=== PATIENT | female | born 1945 | race Caucasian/White ===

== ENCOUNTER → 2018-04-20 08:03 | Outpatient (CLI) | payer MEDICARE, OTHER, SELFPAY ==
[2018-04-20 12:18] LABS: Absolute Lymphocyte Count 2.59 X10^3/ul (0.83-4.51); Absolute Neutrophil Count 3.7 X10^3/uL (2.0-7.7); Basophil# 0.04 X10^3/uL; Basophil% 0.6 % (0-1); Eosinophil# 0.09 X10^3/uL; Eosinophils% 1.2 % (0-5); Hematocrit 42.6 % (37-47); Hemoglobin 13.6 g/dl (12.0-15.0); Lymphocyte # 2.59 X10^3/ul (4.0); Lymphocyte % 35.9 % (19-41); Mean Corp Hgb Conc 31.9 g/gl (32-36); Mean Corpuscular Hgb 29.9 pg (27.0-32.0); Mean Corpuscular Volume 93.6 fL (81-99); Mean Platelet Vol. 10.7 fl (6.2-12.0); Monocyte# 0.79 X10^3/uL; Neutrophil % 51.3 % (47-70); Platelet Count 333 K/mm3 (150-450); RBC Distribution Width CV 14.3 % (11.6-14.6); RBC Distribution Width SD 48.6 fl (35.1-43.9); Red Blood Count 4.55 M/mm3 (4.2-5.4); White Blood Count 7.2 K/mm3 (4.4-11.0)
[2018-04-20 12:32] LABS: POSITIVE COUNT NO; POSITIVE DIFFERENTIAL NO; POSITIVE MORPHOLOGY NO
[2018-04-20 12:50] LABS: AST(SGOT) 49 U/L (15-37); Alanine Aminotransfer ALT/SGPT 50 U/L (13-56); Albumin, Serum 3.6 g/dL (3.2-5.0); Alkaline Phosphatase 58 U/L (45-117); Anion Gap 6 (5-15); BUN 7 mg/dL (7-18); BUN/Creat Ratio 11.3 RATIO (10-20); Calcium,Total 8.3 mg/dL (8.5-10.1); Chloride 98 mmol/L (98-107); Cholesterol 168 mg/dL (200); Creatinine, Serum 0.62 mg/dL (0.55-1.02); EST Glomerular Filtration Rate 100 mL/min (>60); Est Glom Filt Rate - Afr Amer 121 mL/min (>60); Globulin 3.7 g/dL (2.2-4.2); Glucose 72 mg/dL (74-106); High Density Lipoprotein 44 mg/dL; Iron 69 ug/dL (50-170); Potassium 3.7 mmol/L (3.5-5.1); Protein, Total 7.3 g/dL (6.4-8.2); Sodium Level 133 mmol/L (136-145); Thyroid Stim Hormone (TSH) 5.33 uIU/mL (0.358-3.74); Triglycerides 79 mg/dL; Very Low Density Lipoprotein 16 mg/dL (5-40)
[2018-04-20 14:52] LABS: Vitamin B12 1074 pg/mL (211-911)
== END ==
PROVIDERS: Family Provider Family Medicine; PCP Family Medicine; Visit Provider Family Medicine
DX: D51.9 Vitamin B12 deficiency anemia, unspecified (principal); E78.5 Hyperlipidemia, unspecified; E55.9 Vitamin D deficiency, unspecified; D50.9 Iron deficiency anemia, unspecified
CPT/HCPCS: 36415; 80053; 80061; 82306; 82607; 83540; 84443; 85025

== ENCOUNTER → 2018-04-28 11:02 | Outpatient (CLI) | payer MEDICARE, OTHER, SELFPAY ==
[2018-04-28 13:28] LABS: Free T3 2.7 pg/mL (2.18-3.98); T4 Free Direct 1.07 ng/dL (0.76-1.46); Thyroid Stim Hormone (TSH) 5.73 uIU/mL (0.358-3.74)
[2018-04-29 14:07] LABS: Thyroid Peroxidase AB 11 IU/mL (0-34)
[2018-04-29 19:43] LABS: Thyroglobulin Antibody 5.2 IU/mL (0.0-0.9)
== END ==
PROVIDERS: Family Provider Family Medicine; PCP Family Medicine; Visit Provider Family Medicine
DX: E03.9 Hypothyroidism, unspecified (principal)
CPT/HCPCS: 36415; 84439; 84443; 84481; 86376; 86800

== ENCOUNTER → 2018-06-22 07:49 | Outpatient (CLI) | payer MEDICARE, OTHER, SELFPAY ==
--- NOTE | 2018-06-22 07:54 | BI_ITS ---
MAMMOGRAPHY - BILATERAL SCREENING REASON FOR EXAM: Female, 73 years old. Routine annual screening examination. PERTINENT HISTORY: Non-contributory. TECHNIQUE: Digital bilateral breast tutu (3D mammographic acquisition) in the CC and MLO projections. 2-D mediolateral oblique (MLO) and craniocaudad (CC) views of both breasts were obtained. CAD: Full Field Digital Mammography with Computer Added Detection was performed. COMPARISON: Comparison is made with prior study dated May 07, 2017 and January 23, 2016. FINDINGS: Breast Composition: There are scattered areas of fibroglandular density. There are no dominant masses or suspicious calcifications. No other significant abnormalities are identified. There has been no significant change since the prior study. BI/SCREEN MAMM (CAD) W/TUTU BILAT IMPRESSION: Stable bilateral screening mammogram. Yearly follow-up mammogram recommended. (A) ASSESSMENT CATEGORY: BIRADS Category 2: Benign. A letter regarding these results will be sent to the patient by the facility within 30 days. Approximately 10% of breast cancers are not detected by mammography. A normal mammogram should not delay biopsy of a clinically suspicious abnormality. [id number] Electronically Signed: Candelario Tian MD at 9:14 EST Tel [phone], Service support ,
--- NOTE | 2018-06-22 07:54 | BI_ITS ---
MAMMOGRAPHY - BILATERAL SCREENING REASON FOR EXAM: Female, 73 years old. Routine annual screening examination. PERTINENT HISTORY: Non-contributory. TECHNIQUE: Digital bilateral breast anthony (3D mammographic acquisition) in the CC and MLO projections. 2-D mediolateral oblique (MLO) and craniocaudad (CC) views of both breasts were obtained. CAD: Full Field Digital Mammography with Computer Added Detection was performed. COMPARISON: Comparison is made with prior study dated May 07, 2017 and January 23, 2016. FINDINGS: Breast Composition: There are scattered areas of fibroglandular density. There are no dominant masses or suspicious calcifications. No other significant abnormalities are identified. There has been no significant change since the prior study. BI/Bilat Brst Screen Anthony Add-On IMPRESSION: Stable bilateral screening mammogram. Yearly follow-up mammogram recommended. (A) ASSESSMENT CATEGORY: BIRADS Category 2: Benign. A letter regarding these results will be sent to the patient by the facility within 30 days. Approximately 10% of breast cancers are not detected by mammography. A normal mammogram should not delay biopsy of a clinically suspicious abnormality. [id number] Electronically Signed: Candelario Tian MD at 9:14 EST Tel [phone], Service support ,
== END ==
PROVIDERS: Family Provider Family Medicine; PCP Family Medicine; Referring Provider Family Medicine; Visit Provider Family Medicine
DX: Z12.31 Encounter for screening mammogram for malignant neoplasm of breast (principal)
CPT/HCPCS: 77063; 77067

== ENCOUNTER → 2018-07-27 14:28 | Outpatient (CLI) | payer MEDICARE, OTHER, SELFPAY ==
[2018-07-27 18:11] LABS: Free T3 2.2 pg/mL (2.18-3.98); T4 Free Direct 1.13 ng/dL (0.76-1.46); Thyroid Stim Hormone (TSH) 2.41 uIU/mL (0.358-3.74)
== END ==
PROVIDERS: Family Provider Family Medicine; PCP Family Medicine; Visit Provider Family Medicine
DX: E03.9 Hypothyroidism, unspecified (principal)
CPT/HCPCS: 36415; 84439; 84443; 84481

== ENCOUNTER → 2019-01-19 10:21 | Outpatient (CLI) | payer MEDICARE, OTHER, SELFPAY ==
[2019-01-19 12:44] LABS: Free T3 2.5 pg/mL (2.18-3.98); T4 Free Direct 1.12 ng/dL (0.76-1.46); Thyroid Stim Hormone (TSH) 1.86 uIU/mL (0.358-3.74)
== END ==
PROVIDERS: Family Provider Family Medicine; PCP Family Medicine; Visit Provider Family Medicine
DX: E03.9 Hypothyroidism, unspecified (principal)
CPT/HCPCS: 36415; 84439; 84443; 84481

== ENCOUNTER → 2019-04-27 | Outpatient (CLI) | payer MEDICARE, OTHER, SELFPAY ==
[2019-04-27 12:34] LABS: Absolute Lymphocyte Count 2.37 X10^3/uL (0.83-4.51); Absolute Neutrophil Count 3.6 X10^3/uL (2.0-7.7); Basophil# 0.06 X10^3/uL; Basophil% 0.9 % (0-1); Eosinophil# 0.08 X10^3/uL; Eosinophils% 1.2 % (0-5); Hematocrit 43.1 % (37-47); Hemoglobin 13.6 g/dL (12.0-15.0); Lymphocyte # 2.37 X10^3/ul (4.0); Lymphocyte % 34.8 % (19-41); Mean Corp Hgb Conc 31.6 g/dL (32-36); Mean Corpuscular Hgb 29.8 pg (27.0-32.0); Mean Corpuscular Volume 94.5 fL (81-99); Mean Platelet Vol. 11.7 fl (6.2-12.0); Monocyte# 0.66 X10^3/uL; Monocyte% 9.7 % (0-10); NRBC Flagged by Analyzer 0 % (0-5); Neutrophil # 3.63 X10^3/uL (2.7-7.7); Neutrophil % 53.3 % (47-70); Platelet Count 257 K/mm3 (150-450); RBC Distribution Width CV 13.9 % (11.6-14.6); RBC Distribution Width SD 48.8 fl (35.1-43.9); Red Blood Count 4.56 M/mm3 (4.2-5.4); White Blood Count 6.8 K/mm3 (4.4-11.0)
[2019-04-27 12:48] LABS: ALB/GLOB Ratio 1.1 RATIO (0.9-2.4); AST(SGOT) 40 U/L (15-37); Alanine Aminotransfer ALT/SGPT 44 U/L (13-56); Albumin, Serum 4.1 g/dL (3.2-5.0); Alkaline Phosphatase 62 U/L (45-117); Anion Gap 10 (5-15); BUN 11 mg/dL (7-18); BUN/Creat Ratio 13.9 RATIO (10-20); Calcium,Total 8.8 mg/dL (8.5-10.1); Chloride 97 mmol/L (98-107); Cholesterol 158 mg/dL (200); Creatinine, Serum 0.79 mg/dL (0.55-1.02); EST Glomerular Filtration Rate 75 mL/min (>60); Est Glom Filt Rate - Afr Amer 91 mL/min (>60); Globulin 3.6 g/dL (2.2-4.2); Glucose 79 mg/dL (74-106); High Density Lipoprotein 56 mg/dL; Protein, Total 7.7 g/dL (6.4-8.2); Sodium Level 134 mmol/L (136-145); Thyroid Stim Hormone (TSH) 2.38 uIU/mL (0.358-3.74); Triglycerides 60 mg/dL; Very Low Density Lipoprotein 12 mg/dL (5-40)
== END | disposition home or self-care (01) ==
LOC: LAB.FUTURE 08:04
PROVIDERS: Family Provider Family Medicine; PCP Family Medicine; Visit Provider Family Medicine
DX: E78.5 Hyperlipidemia, unspecified (principal); D50.9 Iron deficiency anemia, unspecified; E03.9 Hypothyroidism, unspecified; Z51.81 Encounter for therapeutic drug level monitoring
CPT/HCPCS: 36415; 80053; 80061; 84443; 85025

== ENCOUNTER → 2019-06-23 11:52 | Outpatient (CLI) | payer MEDICARE, OTHER, SELFPAY ==
--- NOTE | 2019-06-23 11:56 | BI_ITS ---
MAMMOGRAPHY - BILATERAL SCREENING 3-D TOMOSYNTHESIS REASON FOR EXAM: Female, 74 years old. Routine screening mammogram. PERTINENT HISTORY: No significant family history. TECHNIQUE: 2-D mammograms and 3-D Tomosynthesis of the breast (s) were performed. CAD was performed. COMPARISON: June 22, 2018, May 07, 2017 FINDINGS: The breast composition is almost entirely fat. Scattered benign calcifications are seen. No dense spiculated masses or suspicious microcalcifications are identified. No architectural distortion is identified. There is no skin thickening or retraction. There has been no significant change since the prior study. BI/SCREEN MAMM (CAD) W/TUTU BILAT IMPRESSION: No mammographic signs of malignancy. Routine yearly mammograms recommended. ASSESSMENT CATEGORY: BIRADS Category 2: Benign. A letter regarding these results will be sent to the patient by the facility within 30 days. FOLLOW UP RECOMMENDATION: Yearly follow up mammogram recommended. (A) Approximately 10% of breast cancers are not detected by mammography. A normal mammogram should not delay biopsy of a clinically suspicious abnormality. Electronically Signed: Killian Isaacs MD at 15:23 EST , Service support ,
== END ==
PROVIDERS: Family Provider Family Medicine; PCP Family Medicine; Referring Provider Family Medicine; Visit Provider Family Medicine
DX: Z12.31 Encounter for screening mammogram for malignant neoplasm of breast (principal)
CPT/HCPCS: 77063; 77067

== ENCOUNTER → 2019-10-19 13:25 | Outpatient (CLI) | payer MEDICARE, OTHER, SELFPAY ==
--- NOTE | 2019-10-19 13:45 | MRI_ITS ---
STUDY: MRI CERVICAL SPINE WITHOUT CONTRAST REASON FOR EXAM: Female, 74 years old. Neck and LEFT shoulder/arm pain TECHNIQUE: Standardized fat and water weighted pulse sequences were obtained in the sagittal and axial planes. COMPARISON: None FINDINGS: Normal foramen magnum and brainstem-cervical cord junction. Normal craniovertebral junction. Normal anterior atlantoaxial articulation. Normal odontoid process. Normal cervical lordosis. Normal vertebral bodies and posterior osseous elements. C2-3: Normal disc. Left facet hypertrophy without compressive sequelae. C3-4: Disc osteophyte complex and left facet hypertrophy with mild left foraminal stenosis. C4-5: Disc osteophyte complex and bilateral facet hypertrophy with mild central canal and bilateral foraminal stenoses. C5-6: Disc osteophyte complex with moderate central canal and severe left and mild right foraminal stenoses. C6-7: Disc osteophyte complex with mild right foraminal stenosis. C7-T1: Disc osteophyte complex without compressive sequelae. Normal cervical cord. Normal visualized soft tissue structures. MRI/Spine Cervical (Routine) IMPRESSION: Multilevel degenerative disease as described. Severe left foraminal stenosis at the C5-6 level. Electronically Signed: Amilcar Burgos MD at 17:39 EDT Tel , Service support ,
--- NOTE | 2019-10-19 14:30 | MRI_ITS ---
STUDY: MRI LUMBAR SPINE WITHOUT CONTRAST REASON FOR EXAM: Female, 74 years old. radiculopathy- LEFT hip since June 2019 TECHNIQUE: Standardized fat and water weighted pulse sequences were obtained in the sagittal and axial planes. COMPARISON: None FINDINGS: T12-L1: Normal endplates. Normal disc height, hydration and morphology. Normal bilateral facet joints. Normal central canal and bilateral lateral recesses. Normal bilateral intervertebral neural foramina. Normal lumbar lordosis. There is no substantial scoliosis. Normal conus medullaris that terminates at the L2 level. L1-2: Normal endplates. Normal disc height, hydration and morphology. Normal bilateral facet joints. Normal central canal and bilateral lateral recesses. Normal bilateral intervertebral neural foramina. L2-3: Bulging annulus and bilateral facet hypertrophy without compressive sequelae. L3-4: Bulging annulus and bilateral facet and ligamentum flavum hypertrophy with mild bilateral foraminal stenoses. L4-5: Bulging annulus and bilateral facet and ligamentum flavum hypertrophy with facet joint effusions. 9 mm posterior left synovial cyst arising from the facet joint. Mild central canal stenosis and moderate right and mild left foraminal stenoses. L5-S1: Bulging annulus and bilateral facet hypertrophy and facet joint effusions with mild central canal stenosis and mild bilateral foraminal stenoses. Normal visualized sacral ala. Multiple small sacral Tarlov cysts. Normal visualized paraspinous soft tissue structures. MRI/Spine Lumbar (Routine) IMPRESSION: Multilevel degenerative disease as described. No evidence of nerve root impingement. Electronically Signed: Amilcar Burgos MD at 17:25 EDT Tel , Service support ,
== END ==
PROVIDERS: PCP Family Medicine; Referring Provider Nurse Practitioner Acute Care; Visit Provider Nurse Practitioner Acute Care
DX: M54.16 Radiculopathy, lumbar region (principal)
CPT/HCPCS: 72141; 72148

== ENCOUNTER 2019-10-26 15:00 | Outpatient (RCR) | payer MEDICARE, OTHER, SELFPAY ==
--- NOTE | 2019-10-04 14:19 | HP.PTEVAL ---
Patient's Visit Information RA LEOS is a 74 year old F referred to Physical Therapy by Truong Johnson MD with a diagnosis of LS radiculopathy. Date of Evaluation: 10/04/19 Physical Therapist: Mark Wick, DPT, OCS, CSCS - Visit Plan Frequency: 2x /Week Duration: 4-6 Weeks Plan: 2x/week for 4-6 weeks for. NS focus with LB and pelvic ROM ex. NS core strength progressing to HEP. HS stretching. E and MH if needed for pain. - Subjective Subjective: LBP L side and into buttock and left lateral hip and medial upper leg. Pulls in back of leg when bends over. Started in July and possibly due to unloading heavy garden bags but not sure that is what it was. Does have to lift invalid now and then out of chair. Pain get to 5-6/10 and is worse sitting at night. Walking is not a problem like sitting adn lifting are. Does have pain at night that cuases her to take alleve which helps her sleep. Does basic ADLs without a hitch just some pain. 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 Will have workup diagnostics on spine next week at [facility]. Phone visit with Dr. Brewster who prescribed prednison for 8 days which helped transiently. - Pain L LB Pain Intensity (Out of 10): 4 Pain Intensity Range: 0, 6 - Objective Walks normal and seps are normal with railing with some eccentric weakness descending. Balance is good. LB AROM et mod limtied and flexion mod limted without pain. SB min limited without pain increase. reflexes 2/3 in patella and achilles B. Sensation LE WNL to gross light touch. Strength LE knees and ankles 4/5 adn hip ext /abd 3+ and hip flexion 4-. +slump and SLR on L. Hard time with pelvic movement especially posterior tilt sitting. - Balance Scores Functional Gait Assessment Score: 28 % Disability: 6.6700 - Goals Goal 1:: Patient pain 0-2/10 at all times adn 75% improved Goal Time Frame: 4-6 Weeks Goal 2:: I approp HEP to limit future problems Goal Time Frame: 4-6 Weeks Goal 3:: Pt score <12 on oswestry Goal Time Frame: 4-6 Weeks - Rehabilitation Potential Physical Therapy Diagnosis: LB degeneration with radiculopathy Rehabilitation Potential: Good - Anticipated Interventions Patient/Client Instruction: Educate patient on: Condition, Plan of Care For the Purpose of:: To decrease pain, To increase ROM, To improve muscle performance and motor function, To increase tolerance to activity/condition/position Therapeutic Exercise to Include: Strength training, Postural training, Flexibilty training, Neuromotor development, Passive ROM, Active ROM, Dynamic Lumbar Stabilization For the Purpose of:: To decrease pain, To improve muscle performance and motor function, To increase tolerance to activity/condition/position, To improve ability of physical actions for home/community/work/leisure Manual Therapy Techniques to Include: Passive ROM For the Purpose of:: To decrease pain TENS: Yes Thermo therapy (hot pack): Yes For the Purpose of:: To decrease pain Thank you for the opportunity to evaluate your patient. For Medicare and Medicare HMO plans, please review the plan of care and approve it. It will need to be FAXED BACK to us at [phone] for Medicare purposes. For Medicare only, by signing this I certify the plan of care. Please let me know if there are questions or concerns regarding this plan of care. Physician Signature: Date:
--- NOTE | 2019-10-26 15:23 | HP.PTDCSUM ---
It has been my pleasure to treat RA LEOS referred by Dr. Truong Johnson MD, with the diagnosis of LS radiculopathy for a total of 6 visit(s). Discharge Date: 10/26/19 Please see the following information for a summary of their discharge status. Subjective: Got a call from [facility] and will have injection in hip. Has stenosis from MRI and needs injected. Pain persists in L LB and hip and into groin to 5/10 this week. Exercises help but not tremendously. Lies at night on right side and sleeps pretty good. Hard work taking care of at home. HEP streetching and strength on floor. Focus on NS spine is OK. L LB Pain Intensity (Out of 10): 5 % Improvement: 10 Objective/Function: L/S aROM WFL and no pain except end range flexion today. Walks normal without pain but gets it sitting with post pelvic tilt. Goal 1:: Patient pain 0-2/10 at all times adn 75% improved Goal Progress: Not Progressing Goal 2:: I approp HEP to limit future problems Goal Progress: Goal Met Goal 3:: Pt score <12 on oswestry Goal Progress: Not Progressing Plan: d/c, pt choice in favor of injection adn continuing HEP If there are questions or concerns regarding this patient's physical therapy, please feel free to call me at [phone]. Thank you for the referral of this patient. Sincerely, Mark Wick, DPT, OCS, CSCS
== END 2019-10-26 19:00 | disposition home or self-care (01) ==
LOC: PT 15:00
PROVIDERS: PCP Family Medicine; Referring Provider Orthopaedic Surgery; Visit Provider Orthopaedic Surgery
DX: M54.16 Radiculopathy, lumbar region (principal)
CPT/HCPCS: 97014; 97110; 97162; 97164; G0283

== ENCOUNTER → 2020-01-03 08:53 | Outpatient (CLI) | payer MEDICARE, OTHER, SELFPAY ==
[2020-01-03 13:22] LABS: Free T3 2.4 pg/mL (2.18-3.98); Thyroid Stim Hormone (TSH) 2.79 uIU/mL (0.358-3.74)
== END ==
PROVIDERS: PCP Family Medicine; Visit Provider Family Medicine
DX: E03.9 Hypothyroidism, unspecified (principal)
CPT/HCPCS: 36415; 84439; 84443; 84481

== ENCOUNTER → 2020-02-04 15:50 | Outpatient (CLI) | payer MEDICARE, OTHER, SELFPAY ==
[2020-02-04 13:22] VITALS: BMI 25.7
--- NOTE | 2020-02-04 13:30 | MASS_PTH ---
PATIENT: RA LEOS LOC: [facility] U#:[id number] AGE/SX: 80/F ROOM: RE02/04/[address]: Dr. Wilber Ballard MD : 1945 BED: DIS: SPEC #: [id number] RECD: 02/04/20 15:16 STATUS: AARON TALIA #: [id number] MIRELLA: 02/04/20 13:[address]: Wilber Ballard DEPT: SURGICAL PATHOLOGY RECD BY: Shaggy Bose ENTERED: 02/07/20 09:04 SP TYPE: Mass OTHR DR: Dr. Charisma Eaton DO Tissues: Buttock, NOS Procedures: Surgery Specimen Level IV HEADER OPERATION: Biopsy right buttock mass PRE-OP DIAGNOSIS: Right buttock mass TISSUE SUBMITTED: Right buttock tissue MICROSCOPIC DIAGNOSIS Right buttock mass, core biopsy: Fragments of fibroadipose tissue with focal dense fibrosis and dystrophic calcifications. Negative for malignancy. See comment. SJ:lupis 02/08/20 COMMENT Clinical correlation and appropriate follow up are necessary. MICROSCOPIC DESCRIPTION Slides are reviewed. GROSS DESCRIPTION Received in fixative is one container labeled with the patient's name and designated right buttock. The specimen consists of multiple elongated fragments of chacon soft tissue that in aggregate measure 1 x 0.3 x 0.1 cm. The specimen is totally submitted in one cassette. / CAROLE:lupis 02/07/20 TC:5 CPT: 02178
== END ==
PROVIDERS: PCP Family Medicine; Referring Provider Surgery; Visit Provider Surgery
DX: R22.9 Localized swelling, mass and lump, unspecified (principal)
CPT/HCPCS: 88305

== ENCOUNTER → 2020-08-08 08:18 | Outpatient (CLI) | payer MEDICARE, OTHER, SELFPAY ==
[2020-02-04 13:22] VITALS: BMI 25.7
[2020-08-08 12:13] LABS: Absolute Lymphocyte Count 2.84 X10^3/uL (0.83-4.51); Absolute Neutrophil Count 3.3 X10^3/uL (2.0-7.7); Basophil# 0.07 X10^3/uL; Eosinophil# 0.19 X10^3/uL; Eosinophils% 2.7 % (0-5); Hematocrit 41.3 % (37-47); Hemoglobin 13.4 g/dL (12.0-15.0); Lymphocyte # 2.84 X10^3/ul (4.0); Lymphocyte % 39.7 % (19-41); Mean Corp Hgb Conc 32.4 g/dL (32-36); Mean Corpuscular Hgb 31.2 pg (27.0-32.0); Mean Platelet Vol. 11.5 fl (6.2-12.0); Monocyte# 0.77 X10^3/uL; Monocyte% 10.8 % (0-10); NRBC Flagged by Analyzer 0 % (0-5); Neutrophil # 3.28 X10^3/uL (2.7-7.7); Neutrophil % 45.7 % (47-70); Platelet Count 269 K/mm3 (150-450); RBC Distribution Width CV 13.6 % (11.6-14.6); RBC Distribution Width SD 48.5 fl (35.1-43.9); White Blood Count 7.2 K/mm3 (4.4-11.0)
[2020-08-08 12:35] LABS: ALB/GLOB Ratio 1.1 RATIO (0.9-2.4); AST(SGOT) 47 U/L (15-37); Alanine Aminotransfer ALT/SGPT 50 U/L (13-56); Albumin, Serum 3.9 g/dL (3.2-5.0); Alkaline Phosphatase 68 U/L (45-117); Anion Gap 8 (5-15); BUN 13 mg/dL (7-18); BUN/Creat Ratio 17.9 RATIO (10-20); Calcium,Total 8.8 mg/dL (8.5-10.1); Chloride 99 mmol/L (98-107); Cholesterol 176 mg/dL (200); Creatinine, Serum 0.73 mg/dL (0.55-1.02); EST Glomerular Filtration Rate 82 mL/min (>60); Est Glom Filt Rate - Afr Amer 100 mL/min (>60); Free T3 2.7 pg/mL (2.18-3.98); Globulin 3.5 g/dL (2.2-4.2); Glucose 81 mg/dL (74-106); High Density Lipoprotein 47 mg/dL; Potassium 3.9 mmol/L (3.5-5.1); Protein, Total 7.4 g/dL (6.4-8.2); Sodium Level 135 mmol/L (136-145); T4 Free Direct 1.23 ng/dL (0.76-1.46); Triglycerides 61 mg/dL; Very Low Density Lipoprotein 12 mg/dL (5-40)
== END ==
PROVIDERS: PCP Family Medicine; Visit Provider Family Medicine
DX: Z00.00 Encounter for general adult medical examination without abnormal findings (principal); E03.9 Hypothyroidism, unspecified; E78.5 Hyperlipidemia, unspecified; Z51.81 Encounter for therapeutic drug level monitoring; Z13.1 Encounter for screening for diabetes mellitus
CPT/HCPCS: 36415; 80053; 80061; 84439; 84481; 85025

== ENCOUNTER → 2020-11-14 07:12 | Outpatient (CLI) | payer MEDICARE, OTHER, SELFPAY ==
[2020-02-04 13:22] VITALS: BMI 25.7
--- NOTE | 2020-11-14 07:14 | BI_ITS ---
MAMMOGRAPHY - BILATERAL SCREENING REASON FOR EXAM: Female, 75 years old. Routine annual screening examination. PERTINENT HISTORY: Non-contributory. TECHNIQUE: Digital bilateral breast tutu (3D mammographic acquisition) in the CC and MLO projections. 2-D mediolateral oblique (MLO) and craniocaudad (CC) views of both breasts were obtained. CAD: Full Field Digital Mammography with Computer Added Detection was performed. COMPARISON: Comparison is made with prior study dated 06/23/2019 and 06/22/2018. FINDINGS: Breast Composition: There are scattered areas of fibroglandular density. There are no dominant masses or suspicious calcifications. No other significant abnormalities are identified. There has been no significant change since the prior study. BI/SCRN MAMM (CAD)W/TUTU BILAT IMPRESSION: Stable bilateral screening mammogram. Yearly follow-up mammogram recommended. (A) ASSESSMENT CATEGORY: BIRADS Category 1: Negative. A letter regarding these results will be sent to the patient by the facility within 30 days. Approximately 10% of breast cancers are not detected by mammography. A normal mammogram should not delay biopsy of a clinically suspicious abnormality. [id number] Electronically Signed: Candelario Tian MD at 8:28 EDT , Service support ,
== END ==
PROVIDERS: PCP Family Medicine; Referring Provider Family Medicine; Visit Provider Family Medicine
DX: Z12.31 Encounter for screening mammogram for malignant neoplasm of breast (principal)
CPT/HCPCS: 77063; 77067

== ENCOUNTER 2021-08-24 07:39 | Inpatient (IN) | payer MEDICARE, OTHER, SELFPAY ==
[2021-08-24] VITALS (15 sets, daily range): BP systolic 101–162; BP diastolic 55–109; PULSE 80–93; RESP 14–18; TEMP 36.3–37.4; O2SAT 92–100; BMI 23.1; BMI 24.0
--- NOTE | 2021-08-24 | COL_PTH ---
PATIENT: RA LEOS LOC: [facility] U#:[id number] AGE/SX: 76/F ROOM: [facility] RE08/24/[address]: Dr. Isaiah Ruth MD : 1945 BED: 1 DIS: 08/28/2021 SPEC #: [id number] RECD: 08/24/21 13:29 STATUS: AARON MELGAR #: [id number] MIRELLA: 08/24/21 00:[address]: Isaiah Ruth DEPT: SURGICAL PATHOLOGY RECD BY: Rosamaria Hope ENTERED: 08/27/21 10:25 SP TYPE: COLON OTHR DR: Dr. Charisma Eaton DO Tissues: Colon, NOS Procedures: Surgery Specimen Level V HEADER OPERATION: Laparotomy ileocecectomy PRE-OP DIAGNOSIS: Cecal volvulus TISSUE SUBMITTED: Right colon MICROSCOPIC DIAGNOSIS Cecum and small bowel, segmental resection: Cecum consistent with volvulus. Small bowel with no pathologic change. Appendix with no evidence of inflammation. Three out of three lymph nodes with no pathologic change. See comment. AM:lupis 08/28/2021 COMMENT The findings are consistent with clinical impression of cecal volvulus. Clinical correlation is suggested. MICROSCOPIC DESCRIPTION Slides are reviewed. GROSS DESCRIPTION Received in fixative is one container labeled with the patient's name and designated cecum. The specimen consists of a dilated cecum measuring 9 x 7 x 5 cm. Attached to this is an unremarkable appendix measuring 8 cm in length and 0.7 cm in diameter. Also attached is a portion of terminal ileum measuring 8 cm in length. Sections of the appendix reveal an obliterated tip. The small bowel is grossly unremarkable. No mass lesions are identified. The ileocecal valve does not contain mass lesions. The segments of cecum show flattened mucosal fold; however, no mass lesions are identified. The fibrofatty tissue attached to the specimen contains several chacon nodules averaging 0.5 cm and grossly resembling lymph nodes. Classification Officer sections are submitted in seven cassettes as follows: 1 - appendix, 2??mucosal margins of excision, 3 - small bowel, 4 - ileocecal valve, 5 & 6 - cecum, 7 - presumed lymph nodes. / AM:lupis 08/27/2021 TC:5 CPT:
--- NOTE | 2021-08-24 08:13 | CT_ITS ---
STUDY: CT ABDOMEN AND PELVIS WITHOUT CONTRAST REASON FOR EXAM: Female, 76 years old. pain RADIATION DOSAGE (If Supplied By Facility): CTDIvol = ( 6.22 ) mGy, DLP = ( 282.88 ) mGycm TECHNIQUE: Transaxial images were obtained from the dome of the diaphragm to the symphysis pubis without oral contrast, and without intravenous contrast. Sagittal and coronal images were reconstructed. Individualized dose optimization techniques were used for this CT. COMPARISON: None. FINDINGS: The visualized lung bases are unremarkable. The visualized portions of the heart are within normal limits. Normal liver. There is non-visualization of the gallbladder, which may be secondary to either contraction or a prior cholecystectomy. Normal spleen. Normal pancreas. Normal bilateral adrenal glands. Nonobstructing 2 mm calculus of the right kidney. No hydronephrosis or ureteral calculi. Normal visualized stomach. No dilated loops of small bowel. Fecal residue throughout the colon but no colon wall thickening. Cecum is positioned in the midline and is moderately distended (9.1 cm) with fecal residue. Focal area of mesenteric crowding and swirling in the right lower abdomen on image 55 of series 601 with relative narrowing of the right colon (image 86 series 2) as it extends towards the hepatic flexure. There is non-visualization of the appendix. There is diffuse atherosclerotic calcification of the abdominal aorta, without a demonstrated aneurysm. Normal inferior vena cava. There is borderline retroperitoneal lymphadenopathy with enlarged nodes no greater than 10mm in the short axis diameter. Normal urinary bladder. There is a small umbilical hernia containing fat. Degenerative changes of the lumbar spine. CT/Abdomen/Pelvis without Cont IMPRESSION: 1. Midline position of the distended cecum with swirling of mesentery in the right lower quadrant and associated right colon narrowing suggesting cecal volvulus. No pneumoperitoneum or colon wall thickening. Electronically Signed: Mino Childers MD ([place]) at 8:50 EDT Reading Location ID and State: [place] , Service support ,
--- NOTE | 2021-08-24 08:14 | EX.ED.DYSGE1 ---
HPI History of Present Illness Chief Complaint: Abd Pain Narrative Narrative: Patient presents with abdominal pain that started about 6 hours ago, I woke her from sleep the pain is diffuse throughout the abdomen. She feels like she is bloated. There is no radiation to the back. There is nausea. No diarrhea. She has not passed gas. She does not have any flank pain. She has no urinary symptoms. There is no chest pain or shortness of breath. [facility] Medical History High cholesterol Hypothyroidism Mass Home Medications Ca carb-Ca gluc-Mg ox-Mg gluco 2,000 mg PO DAILY 04/25/14 [History Last Taken Unknown] aspirin 81 mg PO DAILY@0800 04/25/14 [History Last Taken Unknown] ferrous sulfate 65 mg PO DAILY 04/25/14 [History Last Taken Unknown] multivitamin with folic acid 1 tab PO DAILY 04/25/14 [History Last Taken Unknown] biotin 1 mg capsule 1 mg PO DAILY 01/11/20 [History Last Taken Unknown] vitamin B complex 1 tab PO DAILY 01/11/20 [History Last Taken Unknown] Allergy/AdvReac Type Severity Reaction Status Date / Time codeine Allergy Vomiting Verified 08/24/21 07:41 Surgical History H/O tubal ligation H/O: hysterectomy S/P tonsillectomy and adenoidectomy Status post laparoscopic cholecystectomy Social History Smoking Status: Never smoker ROS ROS ED ROS Narrative Past medical history: Reviewed, significant for hypothyroidism, hypercholesterolemia and prior gallbladder surgery Medications: Reviewed Social history: Noncontributory Review of systems: All systems negative except as indicated General: No fever Eyes: No visual changes ENT: No upper airway congestion, normal voice Neck: No neck pain Cardiovascular: No chest pain Respiratory: No shortness of breath or cough Gastrointestinal: As in HPI Genitourinary: No dysuria Musculoskeletal: Denies myalgias no difficulty with ambulation Skin: No rash Neurological: No memory loss, confusion or any focal weakness Psych: No recent behavioral changes Hematologic: No easy bleeding or easy bruising EXAM Physical Exam Narrative Exam Narrative: Physical exam General: Well nourished, Well developed, No Acute Distress Head: Normocephalic, Atraumatic Eyes: Conjunctiva not pale ENT: Moist mucous membranes Neck: Supple, Nontender, No lymphadenopathy Cardiovascular: Regular rate, Regular rhythm Respiratory: No distress, CTA bilaterally Abdomen: Somewhat distended. Diffuse tenderness throughout. I cannot appreciate bowel sounds. Some guarding no rebound Back: Nontender, Normal Inspection. Negative for: CVA tenderness Extremities: Nontender, No edema Skin: Normal color, No rash Neurological: Alert, Normal Strength, Normal Sensation Psychological: Normal affect Const Vital Signs: 08/24/21 07:40 Temperature 97.6 F L Temperature Source Temporal Pulse Rate 80 Respiratory Rate 16 Blood Pressure 162/109 H Blood Pressure Mean 126 Pulse Ox 98 Oxygen Delivery Method Room Air MDM MDM MDM Narrative Medical decision making narrative: Patient is given analgesia and antiemetics, blood work is unremarkable but the CT is suggestive of volvulus pattern. I discussed with surgery, patient is n.p.o. and will be seen by surgery. Lab Data Labs: Laboratory Results - last 24 hr 08/24/21 08/24/21 08:15 08:15 WBC 9.3 RBC 4.37 Hgb 13.7 Hct 41.0 MCV 93.8 MCH 31.4 MCHC 33.4 RDW Std Deviation 45.1 H RDW Coeff of [place] 13.1 Plt Count 324 MPV 9.8 Immature Gran % (Auto) 0.300 Neut % (Auto) 62.7 Lymph % (Auto) 25.5 [place] % (Auto) 9.2 Eos % (Auto) 1.5 Baso % (Auto) 0.8 Absolute Neuts (auto) 5.8 Absolute Lymphs (auto) 2.36 Nucleated RBC % 0 Sodium 132 L Potassium 3.7 Chloride 99 Carbon Dioxide 31.0 Anion Gap 2 L BUN 12 Creatinine 0.67 Estim Creat Clear Calc 40.04 Est GFR (MDRD) Af Amer 109 Est GFR (MDRD) Non-Af 90 BUN/Creatinine Ratio 17.8 Glucose 104 Calcium 8.3 L Total Bilirubin 0.70 AST 48 H ALT 52 Alkaline Phosphatase 66 Total Protein 7.1 Albumin 3.8 Globulin 3.3 Albumin/Globulin Ratio 1.2 Lipase 108 Radiography Diagnostic Testing: Clinical Impression(s) from Imaging Studies Abdomen/Pelvis CT 08/24/21 08:13 IMPRESSION: 1. Midline position of the distended cecum with swirling of mesentery in the right lower quadrant and associated right colon narrowing suggesting cecal volvulus. No pneumoperitoneum or colon wall thickening. Electronically Signed: Mino Childers MD ([place]) at 8:50 EDT Reading Location ID and State: [address] [place] [address] , Service support , Discharge Plan Triage Chief Complaint: Abd Pain ED Provider: Chivo Riley Dx/Rx/DC Orders Clinical Impression: Cecal volvulus Prescriptions: No Action vitamin B complex [B Complex-Vitamin B12] Tablet 1 tab PO DAILY RF: 0 biotin 1 mg capsule 1 mg PO DAILY RF: 0 aspirin 81 MG tablet 81 mg PO DAILY@0800 RF: 0 ferrous sulfate 325 MG tablet 65 mg PO DAILY RF: 0 multivitamin with folic acid 1 TABLET tablet 1 tab PO DAILY RF: 0 Ca carb-Ca gluc-Mg ox-Mg gluco 1 EACH tablet 2,000 mg PO DAILY RF: 0 Primary Care Provider: Charisma Eaton Referrals: Charisma Eaton DO [Primary Care Provider] - Disposition Disposition: Acute Care Hospital [facility]
[2021-08-24] MEDS: Ondansetron 4 MG/2 ML Vial IV (08:19)
[2021-08-24] MEDS: Morphine 2 MG/ML Syringe IV (08:19)
[2021-08-24 08:28] LABS: Absolute Lymphocyte Count 2.36 X10^3/uL (0.83-4.51); Absolute Neutrophil Count 5.8 X10^3/uL (2.0-7.7); Basophil# 0.07 X10^3/uL; Basophil% 0.8 % (0-1); Eosinophil# 0.14 X10^3/uL; Eosinophils% 1.5 % (0-5); Hemoglobin 13.7 g/dL (12.0-15.0); Lymphocyte # 2.36 X10^3/ul (0.83-4.51); Lymphocyte % 25.5 % (19-41); Mean Corp Hgb Conc 33.4 g/dL (32-36); Mean Corpuscular Hgb 31.4 pg (27.0-32.0); Mean Corpuscular Volume 93.8 fL (81-99); Mean Platelet Vol. 9.8 fl (6.2-12.0); Monocyte# 0.85 X10^3/uL; Monocyte% 9.2 % (0-10); NRBC Flagged by Analyzer 0 % (0-5); Neutrophil # 5.81 X10^3/uL (2.7-7.7); Neutrophil % 62.7 % (47-70); Platelet Count 324 K/mm3 (150-450); RBC Distribution Width CV 13.1 % (11.6-14.6); RBC Distribution Width SD 45.1 fl (35.1-43.9); Red Blood Count 4.37 M/mm3 (4.2-5.4); White Blood Count 9.3 K/mm3 (4.4-11.0)
[2021-08-24 08:45] LABS: ALB/GLOB Ratio 1.2 RATIO (0.9-2.4); AST(SGOT) 48 U/L (15-37); Alanine Aminotransfer ALT/SGPT 52 U/L (13-56); Albumin, Serum 3.8 g/dL (3.2-5.0); Alkaline Phosphatase 66 U/L (45-117); Anion Gap 2 (5-15); BUN 12 mg/dL (7-18); BUN/Creat Ratio 17.8 RATIO (10-20); Calcium,Total 8.3 mg/dL (8.5-10.1); Chloride 99 mmol/L (98-107); Creatinine, Serum 0.67 mg/dL (0.55-1.02); EST Glomerular Filtration Rate 90 mL/min (>60); Est Glom Filt Rate - Afr Amer 109 mL/min (>60); Estimated Creatinine Clearance 40.04 ml/min; Globulin 3.3 g/dL (2.2-4.2); Glucose 104 mg/dL (74-106); Lipase 108 U/L (73-393); Potassium 3.7 mmol/L (3.5-5.1); Protein, Total 7.1 g/dL (6.4-8.2); Sodium Level 132 mmol/L (136-145)
[2021-08-24 09:05] LABS: Bacteria 0 SEEN /hpf (None Seen); Mucous, Urine 0 SEEN /hpf (<or=2+); Red Blood Cells-Urine 0 SEEN /hpf (0-5); Squamous Epithelial Cells - UA 0 SEEN /hpf (5-10); White Blood Cells 0 SEEN /hpf (0-5)
[2021-08-24 09:09] LABS: Color, Urine Yellow (Yellow); Glucose, Dipstick Normal (Normal); Ketone-Dipstick Negative (Negative); Leukocyte Esterase-Dipstick Negative /ul (Negative); Nitrite-Dipstick Negative (Negative); Occult Blood-Urine Negative /ul (Negative); Protein-Dipstick Negative (Negative); Urine Bilirubin Dipstick Negative (Negative); Urine Clarity Clear (Clear); Urine Urobilinogen Normal (Normal)
--- NOTE | 2021-08-24 09:26 | EKG12_ITS ---
Test Reason : PRE-OP Blood Pressure : / mmHG Vent. Rate : 074 BPM Atrial Rate : 074 BPM P-R Int : 150 ms QRS Dur : 078 ms QT Int : 448 ms P-R-T Axes : 068 -15 036 degrees QTc Int : 497 ms Normal sinus rhythm Prolonged QT Abnormal ECG Confirmed by DILLON RODARTE, KAMERON ([id number]), graphics editor NINO RICHARD ([id number]) on 08/28/2021 10:45:25 AM Referred By: Isaiah Ruth Confirmed By:KAMERON CARRANZA MD
[2021-08-24] MEDS: Lactated Ringers 1,000 ML 100 ML IV (09:30)
--- NOTE | 2021-08-24 09:39 | HP.PCM.SX_ITS ---
HPI - General HPI Narrative RA LEOS is a 76 F who presents with sudden onset of abdominal pain. She says the pain is on the right side and started 2 AM. She said it is very severe. No nausea or vomiting. No fevers or chills. This is never happened in the past. [facility] Medical History High cholesterol Hypothyroidism [place] Home Medications Ca carb-Ca gluc-Mg ox-Mg gluco 2,000 mg PO DAILY 04/25/14 [History Last Taken Unknown] aspirin 81 mg PO DAILY@0800 04/25/14 [History Last Taken Unknown] ferrous sulfate 65 mg PO DAILY 04/25/14 [History Last Taken Unknown] multivitamin with folic acid 1 tab PO DAILY 04/25/14 [History Last Taken Unknown] biotin 1 mg capsule 1 mg PO DAILY 01/11/20 [History Last Taken Unknown] vitamin B complex 1 tab PO DAILY 01/11/20 [History Last Taken Unknown] Allergy/AdvReac Type Severity Reaction Status Date / Time codeine Allergy Vomiting Verified 08/24/21 07:41 Surgical History H/O tubal ligation H/O: hysterectomy S/P tonsillectomy and adenoidectomy Status post laparoscopic cholecystectomy Social History Smoking Status: Never smoker ROS Constitutional Constitutional: Denies anorexia or fatigue Eyes Eyes: Denies blurry vision ENT HEENT: Denies abnormal hearing Cardiovascular Cardiovascular: Denies chest pain Respiratory/Chest Respiratory/Chest: Denies cough or dyspnea Gastrointestinal Gastrointestinal: Reports abdominal pain; Denies nausea or vomiting Genitourinary Genitourinary: Denies change in urinary stream Musculoskeletal Musculoskeletal: Denies abnormal gait Integumentary Integumentary: Denies new lesions Neurologic Neurologic: Denies abnormal gait or dizziness Psychiatric Psychiatric: Denies anxiety Endocrine Endocrinology: Denies flushing Hematologic/Lymphatic Hematologic/Lymphatic: Denies easy bruising Vital Signs Vital Signs Vital Signs: 08/24/21 07:40 Temperature 97.6 F L Temperature Source Temporal Pulse Rate 80 Respiratory Rate 16 Blood Pressure 162/109 H Blood Pressure Mean 126 Pulse Ox 98 Oxygen Delivery Method Room Air Weight Weight: 135 lb Body Mass Index (BMI) 23.1 Physical Exam Const alert and oriented x3 Resp normal respiratory effort and normal air movement Cardio regular rate and regular rhythm GI soft to palpation and non-distended Palpation: tender RLQ Extremity normal to inspection Results Lab / Micro Data Result Diagrams: 08/24/21 08:15 08/24/21 08:15 Labs: Laboratory Results - last 24 hr 08/24/21 08:15: WBC 9.3, RBC 4.37, Hgb 13.7, Hct 41.0, MCV 93.8, MCH 31.4, MCHC 33.4, RDW Std Deviation 45.1 H, RDW Coeff of [place] 13.1, Plt Count 324, MPV 9.8, Immature Gran % (Auto) 0.300, Neut % (Auto) 62.7, Lymph % (Auto) 25.5, [place] % (Auto) 9.2, Eos % (Auto) 1.5, Baso % (Auto) 0.8, Absolute Neuts (auto) 5.8, Absolute Lymphs (auto) 2.36, Nucleated RBC % 0 08/24/21 08:15: Sodium 132 L, Potassium 3.7, Chloride 99, Carbon Dioxide 31.0, Anion Gap 2 L, BUN 12, Creatinine 0.67, Estim Creat Clear Calc 40.04, Est GFR (MDRD) Af Amer 109, Est GFR (MDRD) Non-Af 90, BUN/Creatinine Ratio 17.8, Glucose 104, Calcium 8.3 L, Total Bilirubin 0.70, AST 48 H, ALT 52, Alkaline Phosphatase 66, Total Protein 7.1, Albumin 3.8, Globulin 3.3, Albumin/Globulin Ratio 1.2, Lipase 108 08/24/21 08:55: Urine Color Yellow, Urine Clarity Clear, Urine pH 8.0, Ur Specific [place] 1.010, Urine Protein Negative, Urine Glucose (UA) Normal, Urine Ketones Negative, Urine Occult Blood Negative, Urine Nitrite Negative, Urine Bilirubin Negative, Urine Urobilinogen Normal, Ur Leukocyte Esterase Negative, Urine RBC 0 SEEN, Urine WBC 0 SEEN, Ur Squamous Epith Cells 0 SEEN, Urine Bacteria 0 SEEN, Urine Mucus 0 SEEN Radiology Impression Abdomen/Pelvis CT 08/24/21 08:13 IMPRESSION: 1. Midline position of the distended cecum with swirling of mesentery in the right lower quadrant and associated right colon narrowing suggesting cecal volvulus. No pneumoperitoneum or colon wall thickening. Electronically Signed: Mino Childers MD (Brooks) at 8:50 EDT Reading Location ID and State: [address] [place] [address] , Service support , Assessment & Plan Assessment/Plan (1) Cecal volvulus: PLAN: I saw the patient in the emergency room and she was writhing in pain especially on her right side. She was especially tender. I reviewed the CT scan which does show swirling of the mesentery and likely cecal volvulus. I discussed laparotomy and right hemicolectomy with her for cecal volvulus. I discussed the risks including modality to bleeding, infection, injury to surrounding organs. Patient understands risks and is when to proceed. I will emergently take her to the operating room for laparotomy and right hemicolectomy. She will be admitted postoperatively to the floor. Isaiah Ruth MD Pager: [facility] [address] [place] [address], [address] [place] [address] Office:
[2021-08-24] MEDS: Bupivacaine Mpf 0.5% 30 ML VIAL (10:30)
--- NOTE | 2021-08-24 11:02 | OP.PCM_ITS ---
Problems Associated Problem List Diagnoses (1) Cecal volvulus: Report of Operation Date of Procedure: 08/24/21 Pre-Operative Diagnosis: Cecal volvulus Post-Operative Diagnosis: Cecal volvulus Surgery/Procedure Performed:: Laparotomy with ileocecectomy and anastomosis Specimen's removed: Cecum Description of Procedure: Patient was brought back to the operating room and general anesthesia was induced. A Travis catheter was placed. The abdomen was prepped and draped in usual sterile fashion. A midline incision was made inferior to the umbilicus down to the pubic bone and the fascia was grasped and elevated and incised. A finger sweep was performed and then using electrocautery the incision was lengthened. The wound protector was then placed. The colon was identified and the cecum appeared to be volvulized. There was good ligament of Toldt in the distal ascending colon without much laxity in the ascending colon. The decision was made to perform an ileocecectomy. The distal ileum was identified and divided using a KRISTEN stapler. Next the vessels of the right colon were inspected and just proximal to one of the vessels to the ascending colon a window was made the mesentery and a KRISTEN stapler was used to divide the cecum from the distal ascending colon. LigaSure impact was used to take down the mesentery and there was good hemostasis. There did not appear to be any necrosis or signs of ischemia. Next using KRISTEN stapler the distal ileum was anastomosed to the ascending colon at the tenia. The staple line was inspected and appeared to have good hemostasis. A TX 60 stapler was used to close the enterotomy. A 3-0 silk suture was placed at the crotch of the staple line. The colon was reduced back into the abdomen and the abdomen w as copiously irrigated and suctioned dry. The wound protector was then removed and staff changed gown and gloves. Next the fascia was closed in a running fashion using 0 PDS suture from the top and bottom meeting in the middle. The subcutaneous tissue was irrigated and suctioned dry and the incision was closed with interrupted 4-0 Monocryl sutures. Steri-Strips and bandages were then applied. Travis was removed at the end of the case. Patient was taken to PACU in stable condition. Admit VTE Documentation VTE Mechan Device Prophylaxis: SCD's
[2021-08-24] MEDS: 0.9% Normal Saline 1,000 ML 60 ML IV (12:19)
[2021-08-24] MEDS: Acetaminophen 325 MG Tablet 650 MG PO (20:56)
[2021-08-24] MEDS: Docusate Sodium 100 MG Capsule PO (20:56)
[2021-08-25] VITALS (7 sets, daily range): BP systolic 133–169; BP diastolic 60–80; PULSE 51–104; RESP 12–20; TEMP 36.7–37.6; O2SAT 88–100
[2021-08-25] MEDS: Acetaminophen 325 MG Tablet 650 MG PO ×3 (04:58→23:18)
[2021-08-25] MEDS: 0.9% Normal Saline 1,000 ML 60 ML IV (05:00)
[2021-08-25 06:36] LABS: Absolute Lymphocyte Count 2.24 X10^3/uL (0.83-4.51); Absolute Neutrophil Count 13.9 X10^3/uL (2.0-7.7); Basophil# 0.04 X10^3/uL; Basophil% 0.2 % (0-1); Eosinophil# 0.07 X10^3/uL; Eosinophils% 0.4 % (0-5); Hematocrit 38.1 % (37-47); Lymphocyte # 2.24 X10^3/ul (0.83-4.51); Lymphocyte % 12.7 % (19-41); Mean Corp Hgb Conc 34.1 g/dL (32-36); Mean Corpuscular Hgb 30.9 pg (27.0-32.0); Mean Corpuscular Volume 90.5 fL (81-99); Mean Platelet Vol. 10.6 fl (6.2-12.0); Monocyte# 1.27 X10^3/uL; Monocyte% 7.2 % (0-10); NRBC Flagged by Analyzer 0 % (0-5); Neutrophil # 13.86 X10^3/uL (2.7-7.7); Neutrophil % 78.9 % (47-70); Platelet Count 299 K/mm3 (150-450); RBC Distribution Width CV 13.2 % (11.6-14.6); RBC Distribution Width SD 43.7 fl (35.1-43.9); Red Blood Count 4.21 M/mm3 (4.2-5.4); White Blood Count 17.6 K/mm3 (4.4-11.0)
--- NOTE | 2021-08-25 06:52 | PN.SURG_ITS ---
Subjective Subjective Patient does not note any flatus yet. She is in a lot less pain than before surgery. No nausea vomiting overnight. Objective Data Objective Data Vital Signs: Vital Signs Temp Pulse Resp BP Pulse Ox 98.0 F 86 20 H 158/73 H 92 08/25/21 05:01 08/25/21 05:01 08/25/21 05:01 08/25/21 05:01 08/25/21 05:01 Oxygen Flow Rate (L/min) 2 Oxygen Delivery Method Room Air Weight: 140 lb 0.002 oz Body Mass Index (BMI) 24.0 Intake & Output: Intake and Output for Last 24 Hours 08/23/21 08/24/21 08/25/21 23:59 23:59 23:59 Intake Total 1600 / 1600 1000 / 1000 Output Total 250 / 275 Balance 1350 / 1325 975 / 975 Lab / Micro Data Result Diagrams: 08/25/21 05:10 08/24/21 08:15 Labs: Laboratory Results - last 24 hr 08/24/21 08:15: WBC 9.3, RBC 4.37, Hgb 13.7, Hct 41.0, MCV 93.8, MCH 31.4, MCHC 33.4, RDW Std Deviation 45.1 H, RDW Coeff of [place] 13.1, Plt Count 324, MPV 9.8, Immature Gran % (Auto) 0.300, Neut % (Auto) 62.7, Lymph % (Auto) 25.5, [place] % (Auto) 9.2, Eos % (Auto) 1.5, Baso % (Auto) 0.8, Absolute Neuts (auto) 5.8, Absolute Lymphs (auto) 2.36, Nucleated RBC % 0 08/24/21 08:15: Sodium 132 L, Potassium 3.7, Chloride 99, Carbon Dioxide 31.0, Anion Gap 2 L, BUN 12, Creatinine 0.67, Estim Creat Clear Calc 40.04, Est GFR (MDRD) Af Amer 109, Est GFR (MDRD) Non-Af 90, BUN/Creatinine Ratio 17.8, Glucose 104, Calcium 8.3 L, Total Bilirubin 0.70, AST 48 H, ALT 52, Alkaline Phosphatase 66, Total Protein 7.1, Albumin 3.8, Globulin 3.3, Albumin/Globulin Ratio 1.2, Lipase 108 08/24/21 08:55: Urine Color Yellow, Urine Clarity Clear, Urine pH 8.0, Ur Specific [place] 1.010, Urine Protein Negative, Urine Glucose (UA) Normal, Urine Ketones Negative, Urine Occult Blood Negative, Urine Nitrite Negative, Urine Bilirubin Negative, Urine Urobilinogen Normal, Ur Leukocyte Esterase Negative, Urine RBC 0 SEEN, Urine WBC 0 SEEN, Ur Squamous Epith Cells 0 SEEN, Urine Bacteria 0 SEEN, Urine Mucus 0 SEEN 08/25/21 05:10: WBC 17.6 H, RBC 4.21, Hgb 13.0, Hct 38.1, MCV 90.5, MCH 30.9, MCHC 34.1, RDW Std Deviation 43.7, RDW Coeff of [place] 13.2, Plt Count 299, MPV 10.6, Immature Gran % (Auto) 0.600, Neut % (Auto) 78.9 H, Lymph % (Auto) 12.7 L, [place] % (Auto) 7.2, Eos % (Auto) 0.4, Baso % (Auto) 0.2, Absolute Neuts (auto) 13.9 H, Absolute Lymphs (auto) 2.24, Nucleated RBC % 0 Radiography Diagnostic Testing: Radiology Impression Abdomen/Pelvis CT 08/24/21 08:13 IMPRESSION: 1. Midline position of the distended cecum with swirling of mesentery in the right lower quadrant and associated right colon narrowing suggesting cecal volvulus. No pneumoperitoneum or colon wall thickening. Electronically Signed: Mino Childers MD (Brooks) at 8:50 EDT Reading Location ID and State: [address] [place] [address] , Service support , Physical Exam Const oriented x3 and no apparent distress Resp normal respiratory effort Cardio regular rate and regular rhythm GI soft to palpation Palpation: tender Assessment & Plan Assessment/Plan (1) Cecal volvulus: PLAN: Patient is postoperative day 1 after ileocecectomy for cecal volvulus. Patient does report that she is not passing any flatus yet. Continue sips of clears until she starts passing flatus then I will advance her diet. Encourage ambulation and incentive spirometer. We will start Lovenox and a PPI. Isaiah Ruth MD Pager: [facility] [address] [place] [address], [facility] [address] [place] [address] Office:
[2021-08-25 06:55] LABS: Anion Gap 5 (5-15); BUN 10 mg/dL (7-18); Calcium,Total 8.2 mg/dL (8.5-10.1); Chloride 96 mmol/L (98-107); Creatinine, Serum 0.77 mg/dL (0.55-1.02); EST Glomerular Filtration Rate 77 mL/min (>60); Est Glom Filt Rate - Afr Amer 94 mL/min (>60); Estimated Creatinine Clearance 40.04 ml/min; Glucose 115 mg/dL (74-106); Potassium 4.4 mmol/L (3.5-5.1); Sodium Level 129 mmol/L (136-145)
[2021-08-25] MEDS: Pantoprazole Sodium 20 MG Tablet PO ×2 (08:10→22:00)
[2021-08-25] MEDS: oxyCODONE 5 MG Tablet PO ×3 (08:10→23:18)
[2021-08-25] MEDS: Aspirin E.C. 81 MG Tablet PO (08:11)
[2021-08-25] MEDS: Docusate Sodium 100 MG Capsule PO ×2 (08:11→22:00)
[2021-08-25] MEDS: Enoxaparin 40 MG/0.4 ML Syringe SC (08:11)
--- NOTE | 2021-08-25 13:10 | CASEMGMT ---
RN CM Face to Face with patient for initial transition planning/care coordination assessment. RN CM introduced self and role at [facility]. Patient lying in bed, alert and oriented. Patient willing to participate in assessment and is able to answer all questions appropriately. Care providers, pharmacy, and demographics verified. Patient wishes to discharge home, denies need for home health at this time. Patient states she has no further needs or concerns at this time. CM to follow for discharge planning needs that may arise. PCP: Uma Specialists: none [facility]erred [facility]acy: [facility] Insurance: [employer] Prescription Benefit: yes Living Will/HPOA: yes, sons Harjeet and Murray LNOK: sons Living Arrangements: Patient lives alone in a single story home with 2 steps and railing to enter the home. Patient states she is independent at home. Transportation: self, sister DME/HHC: Patient states she has shower chair, grab bars, raised toilet, and cane at home. No previous HHC Disposition Plan: Patient to discharge home with family support and follow-up plans in place. Rema RUIZ, RN, CM
[2021-08-25] MEDS: 0.9% Normal Saline 1,000 ML 90 ML IV (16:50)
[2021-08-25] MEDS: Ondansetron 4 MG/2 ML Vial IV (23:11)
[2021-08-26] VITALS (7 sets, daily range): BP systolic 138–189; BP diastolic 59–84; PULSE 83–89; RESP 14–18; TEMP 36.8–37.6; O2SAT 90–94
[2021-08-26] MEDS: 0.9% Normal Saline 1,000 ML 90 ML IV (04:05)
[2021-08-26 06:05] LABS: Absolute Lymphocyte Count 1.75 X10^3/uL (0.83-4.51); Absolute Neutrophil Count 8.4 X10^3/uL (2.0-7.7); Basophil# 0.05 X10^3/uL; Basophil% 0.4 % (0-1); Eosinophils% 1.8 % (0-5); Hematocrit 32.9 % (37-47); Hemoglobin 11.1 g/dL (12.0-15.0); Lymphocyte # 1.75 X10^3/ul (0.83-4.51); Lymphocyte % 15.6 % (19-41); Mean Corp Hgb Conc 33.7 g/dL (32-36); Mean Corpuscular Hgb 31.1 pg (27.0-32.0); Mean Corpuscular Volume 92.2 fL (81-99); Mean Platelet Vol. 10.9 fl (6.2-12.0); Monocyte# 0.83 X10^3/uL; Monocyte% 7.4 % (0-10); NRBC Flagged by Analyzer 0 % (0-5); Neutrophil # 8.39 X10^3/uL (2.7-7.7); Neutrophil % 74.5 % (47-70); POSITIVE COUNT YES; Platelet Count 191 K/mm3 (150-450); RBC Distribution Width CV 13.5 % (11.6-14.6); RBC Distribution Width SD 45.8 fl (35.1-43.9); Red Blood Count 3.57 M/mm3 (4.2-5.4); White Blood Count 11.3 K/mm3 (4.4-11.0)
[2021-08-26 06:09] LABS: Differential Indicated SCAN CRITERIA MET
[2021-08-26 06:21] LABS: Anion Gap 3 (5-15); BUN 8 mg/dL (7-18); BUN/Creat Ratio 13.8 RATIO (10-20); Calcium,Total 7.8 mg/dL (8.5-10.1); Chloride 100 mmol/L (98-107); Creatinine, Serum 0.58 mg/dL (0.55-1.02); EST Glomerular Filtration Rate 107 mL/min (>60); Est Glom Filt Rate - Afr Amer 129 mL/min (>60); Estimated Creatinine Clearance 40.04 ml/min; Glucose 94 mg/dL (74-106); Potassium 3.5 mmol/L (3.5-5.1); Sodium Level 130 mmol/L (136-145)
[2021-08-26 07:05] LABS: Differential Comment SCANNED; Platelet Estimate ADEQUATE (ADEQ)
[2021-08-26] MEDS: Pantoprazole Sodium 20 MG Tablet PO ×2 (07:47→21:31)
[2021-08-26] MEDS: Aspirin E.C. 81 MG Tablet PO (07:47)
[2021-08-26] MEDS: Acetaminophen 325 MG Tablet 650 MG PO ×2 (07:48→14:29)
[2021-08-26] MEDS: Enoxaparin 40 MG/0.4 ML Syringe SC (07:48)
[2021-08-26] MEDS: oxyCODONE 5 MG Tablet PO ×2 (07:48→14:33)
[2021-08-26] MEDS: Docusate Sodium 100 MG Capsule PO ×2 (07:48→21:32)
[2021-08-26] MEDS: hydrALAZINE 20 MG/ML Vial 5 MG IV (08:25)
--- NOTE | 2021-08-26 08:35 | PCM.PN.SRG ---
Subjective Subjective Patient ports she did pass a little bit of flatus yesterday. She tolerated some clears. No nausea or vomiting. Objective Data Objective Data Vital Signs: Vital Signs Temp Pulse Resp BP Pulse Ox 99.2 F H 85 14 189/82 H 93 08/26/21 07:42 08/26/21 08:25 08/26/21 07:42 08/26/21 07:42 08/26/21 07:42 Oxygen Flow Rate (L/min) 2 Oxygen Delivery Method Room Air Weight: 140 lb 0.002 oz Body Mass Index (BMI) 24.0 Intake & Output: Intake and Output for Last 24 Hours 08/24/21 08/25/21 08/26/21 23:59 23:59 23:59 Intake Total 1600 / 1600 1974 1000 / 1000 Output Total 250 / 275 1475 / 1475 750 / 750 Balance 1350 / 1325 500 / 500 250 / 250 Lab / Micro Data Result Diagrams: 08/26/21 05:30 08/26/21 05:30 Labs: Laboratory Results - last 24 hr 08/26/21 05:30: WBC 11.3 H, RBC 3.57 L, Hgb 11.1 L, Hct 32.9 L, MCV 92.2, MCH 31.1, MCHC 33.7, RDW Std Deviation 45.8 H, RDW Coeff of [place] 13.5, Plt Count 191, MPV 10.9, Immature Gran % (Auto) 0.300, Neut % (Auto) 74.5 H, Lymph % (Auto) 15.6 L, [place] % (Auto) 7.4, Eos % (Auto) 1.8, Baso % (Auto) 0.4, Absolute Neuts (auto) 8.4 H, Absolute Lymphs (auto) 1.75, Nucleated RBC % 0, Differential Comment SCANNED, Platelet Estimate ADEQUATE 08/26/21 05:30: Sodium 130 L, Potassium 3.5, Chloride 100, Carbon Dioxide 27.0, Anion Gap 3 L, BUN 8, Creatinine 0.58, Estim Creat Clear Calc 40.04, Est GFR (MDRD) Af Amer 129, Est GFR (MDRD) Non-Af 107, BUN/Creatinine Ratio 13.8, Glucose 94, Calcium 7.8 L Physical Exam Const alert and oriented x3 Resp normal respiratory effort and normal air movement Cardio regular rate and regular rhythm GI soft to palpation, non-tender and non-distended Assessment & Plan Assessment/Plan (1) Cecal volvulus: PLAN: The patient reports a mild amount of gas yesterday but she says she feels more rumbling and she does have some hypoactive bowel sounds today. When she starts passing more flatus I will advance her to a regular diet. I will stop her IV fluids as she is hypertensive and urinating a lot. Encouraged ambulation and incentive spirometer. Isaiah Ruth MD Pager: [facility] [address] [place] [address], [address] [place] [address] Office:
[2021-08-26] MEDS: Fleet Enema 1 ML RC (16:48)
[2021-08-27 02:13] VITALS: BP 158/69; PULSE 88; RESP 18; TEMP 36.9; O2SAT 92
[2021-08-27] MEDS: oxyCODONE 5 MG Tablet PO ×2 (02:21→23:45)
[2021-08-27] MEDS: Acetaminophen 325 MG Tablet 650 MG PO ×2 (02:21→20:14)
--- NOTE | 2021-08-27 07:36 | PN.SURG_ITS ---
Subjective Subjective Patient is doing well. She reports a small bowel movement yesterday. She is passing flatus. No nausea or vomiting and she tolerated clears. Objective Data Objective Data Vital Signs: Vital Signs Temp Pulse Resp BP Pulse Ox 98.5 F 88 18 158/69 H 92 08/27/21 02:13 08/27/21 02:13 08/27/21 02:13 08/27/21 02:13 08/27/21 02:13 Oxygen Flow Rate (L/min) 2 Oxygen Delivery Method Room Air Weight: 140 lb 0.002 oz Body Mass Index (BMI) 24.0 Intake & Output: Intake and Output for Last 24 Hours 08/25/21 08/26/21 08/27/21 23:59 23:59 23:59 Intake Total 1974 / 1974 1307.5 / 1307.5 700 / 700 Output Total 1475 / 1475 1050 / 1050 Balance 500 / 500 257.5 / 257.5 700 / 700 Lab / Micro Data Result Diagrams: 08/26/21 05:30 08/26/21 05:30 Physical Exam Const oriented x3 and no apparent distress Cardio regular rate and regular rhythm GI soft to palpation Inspection: Negative for abdominal distention Assessment & Plan Assessment/Plan (1) Cecal volvulus: PLAN: Overall the patient is doing well. I will advance her to a transitional diet today. She still has not had a bowel movement that is very large I know there was a lot of stool during surgery. I will order Dulcolax suppository for this. As long as she tolerates diet today and ambulates well I will discharge her home tomorrow. Isaiah Ruth MD Pager: [facility] [address] [place] [address], [address] [place] [address] Office:
[2021-08-27 07:37] VITALS: BP 169/78; PULSE 82; RESP 18; TEMP 36.7; O2SAT 93
[2021-08-27] MEDS: Enoxaparin 40 MG/0.4 ML Syringe SC (08:13)
[2021-08-27] MEDS: Aspirin E.C. 81 MG Tablet PO (08:13)
[2021-08-27] MEDS: Pantoprazole Sodium 20 MG Tablet PO ×2 (08:14→20:15)
[2021-08-27] MEDS: Bisacodyl 10 MG Suppository RC (08:14)
[2021-08-27] MEDS: Docusate Sodium 100 MG Capsule PO ×2 (08:14→20:14)
[2021-08-27 14:00] VITALS: BP 169/65; PULSE 88; RESP 18; TEMP 37; O2SAT 94
[2021-08-27 20:05] VITALS: BP 150/69; PULSE 88; RESP 16; TEMP 37.3; O2SAT 95
[2021-08-28 02:05] VITALS: BP 163/60; PULSE 77; RESP 16; TEMP 37.1; O2SAT 97
[2021-08-28 07:25] VITALS: BP 143/62; PULSE 80; RESP 18; TEMP 36.9; O2SAT 93
[2021-08-28] MEDS: Aspirin E.C. 81 MG Tablet PO (07:31)
--- NOTE | 2021-08-28 08:52 | PCM.PN.SRG ---
Subjective Subjective Patient doing with no issues overnight. She reports flatus but no bowel movement yet. She had a suppository yesterday with no response. No nausea or vomiting. Tolerated diet. Objective Data Objective Data Vital Signs: Vital Signs Temp Pulse Resp BP Pulse Ox 98.5 F 80 18 143/62 H 93 08/28/21 07:25 08/28/21 07:25 08/28/21 07:25 08/28/21 07:25 08/28/21 07:25 Oxygen Flow Rate (L/min) 2 Oxygen Delivery Method Room Air Weight: 140 lb 0.002 oz Body Mass Index (BMI) 24.0 Intake & Output: Intake and Output for Last 24 Hours 08/26/21 08/27/21 08/28/21 23:59 23:59 23:59 Intake Total 1307.5 / 1307.5 700 / 1300 900 / 900 Output Total 1050 / 1050 325 / 725 800 / 800 Balance 257.5 / 257.5 375 / 575 100 / 100 Lab / Micro Data Result Diagrams: 08/26/21 05:30 08/26/21 05:30 Physical Exam Const oriented x3 and no apparent distress Cardio regular rate and regular rhythm GI soft to palpation and non-tender Assessment & Plan Assessment/Plan (1) Cecal volvulus: PLAN: Patient doing well. I will order her a half bottle of magnesium citrate. I will discharge her home today on Colace and she will follow-up with me next week. Isaiah Ruth MD Pager: [facility] [address] [place] [address], [address] [place] [address] Office:
--- NOTE | 2021-08-28 08:55 | PCM.DC.SUM ---
Providers Date of Admission: 08/24/21 Primary Care Physician: Dr. Charisma Eaton DO Reason For Visit: OBSTRUCTIVE COLON Diagnosis Discharge Diagnosis (1) Cecal volvulus: Status: Acute Code(s): K56.2 - Volvulus Medications at Discharge Home Medications Ca carb-Ca gluc-Mg ox-Mg gluco 2,000 mg PO DAILY 04/25/14 aspirin 81 mg PO DAILY@0800 04/25/14 ferrous sulfate 65 mg PO DAILY 04/25/14 multivitamin with folic acid 1 tab PO DAILY 04/25/14 biotin 1 mg capsule 1 mg PO DAILY 01/11/20 vitamin B complex 1 tab PO DAILY 01/11/20 acetaminophen [Tylenol] 650 mg PO Q4H PRN PRN #0 tab 08/28/21 docusate sodium [DOK] 100 mg PO BID #20 cap 08/28/21 Hospital Course Operations colectomy Summary of Care Provided Hospital Course: Patient was admitted to the ER with cecal volvulus and immediately taken to the operating room for ileocecectomy. There was viable bowel with no necrosis. Following surgery the patient was brought to the floor postoperatively and slowly started on a diet. When she was tolerating clears she was advanced to regular diet and when she tolerated this she was discharged home. Weight / BMI Weight Weight: 140 lb 0.002 oz Body Mass Index (BMI) 24.0 ABG / Lab / Microbiology Data Result Diagrams: 08/26/21 05:30 08/26/21 05:30 D/C Instructions Discharge Diet: Light diet - advance as tolerated Discharge Activity: May Drive and May Shower Lifting Restrictions: 10 pounds for 6 weeks Call your doctor if your incision/area has: Continuous Slow Oozing, Sudden Increased Bleeding, Increased Pain/ Swelling, Increased Redness, Foul Smelling Discharge and Swelling at the incision site Call your doctor if you observe: Fever of 101 or Higher Suture Line Care: Avoid Pulling/Pushing and Avoid Pinching/Bending Change Dressing in: 1 day (Change daily until dry and healed over) Cleanse incision/area with: Soap & Water Please Follow Up With: Isaiah Ruth MD When: Please call to schedule 2 week follow up appointment. [phone] Meaningful Use Info Meaningful Use Diagnoses (Choose all that apply): None applicable Discharge Plan Admission Admit Date/Time: 08/24/21 11:06 Attending Provider: Isaiah Ruth Primary Care Provider: Charisma Eaton Discharge Orders/Prescriptions Prescriptions: New acetaminophen [Tylenol] 325 mg Tablet 650 mg PO Q4H PRN PRN (Reason: PAIN 1-10/FEVER) Qty: 0 RF: 0 docusate sodium [DOK] 100 mg Capsule 100 mg PO BID Qty: 20 RF: 0 Continued vitamin B complex [B Complex-Vitamin B12] Tablet 1 tab PO DAILY RF: 0 biotin 1 mg capsule 1 mg PO DAILY RF: 0 aspirin 81 MG tablet 81 mg PO DAILY@0800 RF: 0 ferrous sulfate 325 MG tablet 65 mg PO DAILY RF: 0 multivitamin with folic acid 1 TABLET tablet 1 tab PO DAILY RF: 0 Ca carb-Ca gluc-Mg ox-Mg gluco 1 EACH tablet 2,000 mg PO DAILY RF: 0 Referrals / Follow Up: Marina Nguyen MD [STAFF PHYSICIAN] - Charisma Eaton DO [Primary Care Provider] - Disposition Disposition (needs filled in before D/C Order can be placed): Home, Self Care
[2021-08-28] MEDS: Docusate Sodium 100 MG Capsule PO (09:37)
[2021-08-28] MEDS: Enoxaparin 40 MG/0.4 ML Syringe SC (09:37)
[2021-08-28] MEDS: Pantoprazole Sodium 20 MG Tablet PO (09:37)
[2021-08-28] MEDS: Magnesium Citrate 300 ML 150 ML PO ×2 (09:37→12:42)
--- NOTE | 2021-08-28 11:03 | NURSING ---
pt ambulating independently in room. verbalized no BM at this time. encouraged to ambulate hallway, steady independent gait
--- NOTE | 2021-08-28 11:11 | CASEMGMT ---
RAIMUNDO CM in to pt room, pt was ambulating in the halls. She states that she needs to have a BM prior to leaving the hospital. Pt denies any homegoing needs. She states that her sister will be staying with her for a short time. She denies needs.
[2021-08-28 13:56] VITALS: BP 146/73; PULSE 80; RESP 18; TEMP 36.9; O2SAT 98
[2021-08-28] MEDS: Bisacodyl 10 MG Suppository RC (16:44)
[2021-08-28 17:41] VITALS: BP 150/64; PULSE 99; RESP 18; TEMP 37.1; O2SAT 98
== END 2021-08-28 18:13 | disposition home or self-care (01) | DRG 331 ==
LOC: ED 09:09 → SDC 09:50 → AC 09:50 → SDC 12:31 → MS3 12:31
PROVIDERS: Admitting Provider Surgery; Emergency Provider Emergency Medicine; PCP Family Medicine; Referring Provider Surgery; Visit Provider Surgery
PROC: 0DTH0ZZ Resection of Cecum, Open Approach (ICD-10-PCS; principal; 2021-08-24 14:30)
DX: K56.2 Volvulus (principal); E03.9 Hypothyroidism, unspecified; E78.00 Pure hypercholesterolemia, unspecified; Z79.899 Other long term (current) drug therapy; Z79.82 Long term (current) use of aspirin
CPT/HCPCS: 36415; 74176; 80048; 80053; 81001; 83690; 85025; 88307; 93005; 99282; J7030; J7040; A4216; J2405

== ENCOUNTER → 2021-11-27 | Outpatient (CLI) | payer MEDICARE, OTHER, SELFPAY ==
[2021-11-27 15:40] LABS: Absolute Lymphocyte Count 2.55 X10^3/uL (0.83-4.51); Basophil# 0.04 X10^3/uL; Basophil% 0.6 % (0-1); Eosinophil# 0.08 X10^3/uL; Eosinophils% 1.2 % (0-5); Hematocrit 39.9 % (37-47); Hemoglobin 12.8 g/dL (12.0-15.0); Lymphocyte # 2.55 X10^3/ul (0.83-4.51); Lymphocyte % 39.7 % (19-41); Mean Corp Hgb Conc 32.1 g/dL (32-36); Mean Corpuscular Hgb 30.3 pg (27.0-32.0); Mean Corpuscular Volume 94.5 fL (81-99); Mean Platelet Vol. 11.2 fl (6.2-12.0); Monocyte# 0.72 X10^3/uL; Monocyte% 11.2 % (0-10); NRBC Flagged by Analyzer 0 % (0-5); Neutrophil # 3.03 X10^3/uL (2.7-7.7); Neutrophil % 47.1 % (47-70); Platelet Count 314 K/mm3 (150-450); RBC Distribution Width CV 13.8 % (11.6-14.6); RBC Distribution Width SD 48.1 fl (35.1-43.9); Red Blood Count 4.22 M/mm3 (4.2-5.4); White Blood Count 6.4 K/mm3 (4.4-11.0)
[2021-11-27 15:58] LABS: ALB/GLOB Ratio 1.1 RATIO (0.9-2.4); AST(SGOT) 44 U/L (15-37); Alanine Aminotransfer ALT/SGPT 47 U/L (13-56); Albumin, Serum 3.8 g/dL (3.2-5.0); Alkaline Phosphatase 69 U/L (45-117); Anion Gap 5 (5-15); BUN 12 mg/dL (7-18); BUN/Creat Ratio 16.4 RATIO (10-20); Calcium,Total 8.8 mg/dL (8.5-10.1); Chloride 98 mmol/L (98-107); Creatinine, Serum 0.73 mg/dL (0.55-1.02); EST Glomerular Filtration Rate 82 mL/min (>60); Est Glom Filt Rate - Afr Amer 99 mL/min (>60); Globulin 3.6 g/dL (2.2-4.2); Glucose 82 mg/dL (74-106); Potassium 4.1 mmol/L (3.5-5.1); Protein, Total 7.4 g/dL (6.4-8.2); Sodium Level 134 mmol/L (136-145); Thyroid Stim Hormone (TSH) 2.12 uIU/mL (0.358-3.74)
[2021-11-27 18:09] LABS: Vitamin B12 982 pg/mL (211-911); Vitamin D,25 Hydroxy 60.2 ng/mL
== END | disposition home or self-care (01) ==
LOC: BIMLAB 11:51
PROVIDERS: PCP Family Medicine; Visit Provider Internal Medicine
DX: E78.5 Hyperlipidemia, unspecified (principal); E03.9 Hypothyroidism, unspecified; E83.51 Hypocalcemia
CPT/HCPCS: 36415; 80053; 82306; 82607; 84443; 85025

== ENCOUNTER → 2021-12-21 | Outpatient (CLI) | payer MEDICARE, OTHER, SELFPAY ==
[2021-12-21 07:54] LABS: Cholesterol 246 mg/dL (200); High Density Lipoprotein 46 mg/dL; Triglycerides 88 mg/dL; Very Low Density Lipoprotein 18 mg/dL (5-40)
== END | disposition home or self-care (01) ==
LOC: LAB 06:56
PROVIDERS: PCP Internal Medicine; Referring Provider Internal Medicine; Visit Provider Internal Medicine
DX: E78.5 Hyperlipidemia, unspecified (principal)
CPT/HCPCS: 36415; 80061

== ENCOUNTER → 2022-01-02 | Outpatient (CLI) | payer MEDICARE, OTHER, SELFPAY ==
--- NOTE | 2022-01-02 09:47 | BI_ITS ---
MAMMOGRAPHY - BILATERAL SCREENING REASON FOR EXAM: Female, 77 years old. Routine annual screening examination. PERTINENT HISTORY: Non-contributory. TECHNIQUE: Digital bilateral breast tutu (3D mammographic acquisition) in the CC and MLO projections. 2-D mediolateral oblique (MLO) and craniocaudad (CC) views of both breasts were obtained. CAD: Full Field Digital Mammography with Computer Added Detection was performed. COMPARISON: Comparison is made with prior study dated 11/14/2020 and 06/23/2019. FINDINGS: Breast Composition: There are scattered areas of fibroglandular density. There are no dominant masses or suspicious calcifications. No other significant abnormalities are identified. There has been no significant change since the prior study. BI/SCRN MAMM (CAD)W/TUTU BILAT IMPRESSION: Stable bilateral screening mammogram. Yearly follow-up mammogram recommended. (A) ASSESSMENT CATEGORY: BIRADS Category 1: Negative. A letter regarding these results will be sent to the patient by the facility within 30 days. Approximately 10% of breast cancers are not detected by mammography. A normal mammogram should not delay biopsy of a clinically suspicious abnormality. [id number] Electronically Signed: Candelario Tian MD at 11:32 EDT ,
--- NOTE | 2022-01-02 09:49 | BD_ITS ---
STUDY: DUAL ENERGY X-RAY ABSORPTIOMETRY / DXA REASON FOR EXAM: Female, 77 years old. Post menopausal TECHNIQUE: Bone Mineral Density (BMD) measurements of lumbar spine and bilateral hips were obtained. COMPARISON: Comparison is made with prior study dated 05/07/2017. FINDINGS: Lumbar Spine (L1-L4): g/cm2 (0.778) / T-score (-2.4) / Z-score (0.2) Findings are suggestive of osteopenia with a high fracture risk. Left Femur Total: g/cm2 (0.649) / T-score (-2.4) / Z-score (-0.4) Left Femoral Neck: g/cm2 (0.619) / T-score (-2.1) / Z-score (0.2) Right Femur Total: g/cm2 (0.664) / T-score (-2.3) / Z-score (-0.3) Right Femoral Neck: g/cm2 (0.565) / T-score (-2.6) / Z-score (-0.3) The T-Scores on the most recent prior examination were: Lumbar Spine (L1-L4): There has been worsening of bone density since the previous examination. Left Femur Total: which represents a worsening of 0.8%. Right Femur Total: which represents an improvement of 5.7%. BD/Dexa Bone Density Study IMPRESSION: The patient is considered osteoporotic as outlined below according to World Pete Organization (WHO) criteria with a high fracture risk. There has been worsening of bone density since the previous examination. Reference Information: The T-score is the number of standard deviations above or below the standard which is normal for young adults at their peak bone mineral density. The World Health Organization (WHO) interprets the T-scores as follows: Above -1 Normal bone density Between -1 and -2.5 Osteopenia Equal to / or below -2.5 Osteoporosis As a practical clinical guideline, osteopenia may be graded as follows: Mild -1 through -1.5 Moderate -1.6 through -2.0 Severe -2.1 through -2.4 The Z-score is the number of standard deviations above or below age-matched controls. A Z-score of less than -1.5 would be considered abnormal. References: 1. NIH Osteoporosis and Related Bone Diseases www osteo.org 2. International Society for Clinical Densitometry www iscd.org 3. National Osteoporosis Foundation www nof.org Electronically Signed: Candelario Tian MD at 10:44 EDT ,
== END | disposition home or self-care (01) ==
PROVIDERS: PCP Internal Medicine; Visit Provider Internal Medicine
DX: Z78.0 Asymptomatic menopausal state (principal); Z12.31 Encounter for screening mammogram for malignant neoplasm of breast
CPT/HCPCS: 77063; 77067; 77080

== ENCOUNTER → 2022-02-12 | Outpatient (CLI) | payer MEDICARE, OTHER, SELFPAY ==
[2022-02-12 12:59] LABS: Anion Gap 7 (5-15); BUN 13 mg/dL (7-18); BUN/Creat Ratio 17.7 RATIO (10-20); Calcium,Total 9.4 mg/dL (8.5-10.1); Chloride 99 mmol/L (98-107); Creatinine, Serum 0.74 mg/dL (0.55-1.02); EST Glomerular Filtration Rate 81 mL/min (>60); Est Glom Filt Rate - Afr Amer 98 mL/min (>60); Glucose 80 mg/dL (74-106); Potassium 4.6 mmol/L (3.5-5.1); Sodium Level 134 mmol/L (136-145)
== END | disposition home or self-care (01) ==
LOC: BIMLAB 08:30
PROVIDERS: PCP Internal Medicine; Referring Provider Internal Medicine; Visit Provider Internal Medicine
DX: I10 Essential (primary) hypertension (principal)
CPT/HCPCS: 36415; 80048

== ENCOUNTER → 2022-09-19 | Outpatient (CLI) | payer MEDICARE, OTHER, SELFPAY ==
[2022-09-19 12:16] LABS: Absolute Lymphocyte Count 2.63 X10^3/uL (0.83-4.51); Absolute Neutrophil Count 2.7 X10^3/uL (2.0-7.7); Basophil# 0.05 X10^3/uL; Basophil% 0.8 % (0-1); Eosinophil# 0.13 X10^3/uL; Eosinophils% 2.1 % (0-5); Hematocrit 41.3 % (37-47); Hemoglobin 13.2 g/dL (12.0-15.0); Lymphocyte # 2.63 X10^3/ul (0.83-4.51); Lymphocyte % 41.9 % (19-41); Mean Corpuscular Hgb 30.6 pg (27.0-32.0); Mean Corpuscular Volume 95.6 fL (81-99); Mean Platelet Vol. 10.8 fl (6.2-12.0); Monocyte# 0.78 X10^3/uL; Monocyte% 12.4 % (0-10); NRBC Flagged by Analyzer 0 % (0-5); Neutrophil # 2.68 X10^3/uL (2.7-7.7); Neutrophil % 42.6 % (47-70); Platelet Count 317 K/mm3 (150-450); RBC Distribution Width CV 13.7 % (11.6-14.6); RBC Distribution Width SD 48.8 fl (35.1-43.9); Red Blood Count 4.32 M/mm3 (4.2-5.4); White Blood Count 6.3 K/mm3 (4.4-11.0)
[2022-09-19 12:45] LABS: Vitamin D,25 Hydroxy 37.9 ng/mL
[2022-09-19 13:02] LABS: ALB/GLOB Ratio 1.1 RATIO (0.9-2.4); AST(SGOT) 43 U/L (15-37); Alanine Aminotransfer ALT/SGPT 44 U/L (13-56); Albumin, Serum 3.8 g/dL (3.2-5.0); Alkaline Phosphatase 57 U/L (45-117); Anion Gap 5 (5-15); BUN 11 mg/dL (7-18); BUN/Creat Ratio 15.7 RATIO (10-20); Chloride 97 mmol/L (98-107); Cholesterol 165 mg/dL (200); EST Glomerular Filtration Rate 86 mL/min (>60); Est Glom Filt Rate - Afr Amer 104 mL/min (>60); Globulin 3.4 g/dL (2.2-4.2); Glucose 86 mg/dL (74-106); High Density Lipoprotein 54 mg/dL; Potassium 4.5 mmol/L (3.5-5.1); Protein, Total 7.2 g/dL (6.4-8.2); Sodium Level 132 mmol/L (136-145); Thyroid Stim Hormone (TSH) 4.98 uIU/mL (0.358-3.74); Triglycerides 46 mg/dL; Very Low Density Lipoprotein 9 mg/dL (5-40)
== END | disposition home or self-care (01) ==
LOC: BIMLAB 08:05
PROVIDERS: PCP Internal Medicine; Referring Provider Internal Medicine; Visit Provider Internal Medicine
DX: E03.9 Hypothyroidism, unspecified (principal); E78.5 Hyperlipidemia, unspecified; M81.0 Age-related osteoporosis without current pathological fracture
CPT/HCPCS: 36415; 80053; 80061; 82306; 84443; 85025

== ENCOUNTER → 2022-12-02 | Outpatient (CLI) | payer MEDICARE, OTHER, SELFPAY ==
[2022-12-02 13:01] LABS: Thyroid Stim Hormone (TSH) 2.58 uIU/mL (0.358-3.74)
== END | disposition home or self-care (01) ==
LOC: BIMLAB 08:04
PROVIDERS: PCP Internal Medicine; Visit Provider Internal Medicine
DX: E03.9 Hypothyroidism, unspecified (principal)
CPT/HCPCS: 36415; 84443

== ENCOUNTER → 2023-02-26 | Outpatient (CLI) | payer MEDICARE, OTHER, SELFPAY ==
[2023-02-26 12:19] LABS: Absolute Lymphocyte Count 2.04 X10^3/uL (0.83-4.51); Absolute Neutrophil Count 2.7 X10^3/uL (2.0-7.7); Basophil# 0.06 X10^3/uL; Eosinophil# 0.13 X10^3/uL; Eosinophils% 2.3 % (0-5); Hematocrit 40.8 % (37-47); Lymphocyte # 2.04 X10^3/ul (0.83-4.51); Lymphocyte % 35.4 % (19-41); Mean Corp Hgb Conc 31.9 g/dL (32-36); Mean Corpuscular Hgb 30.4 pg (27.0-32.0); Mean Corpuscular Volume 95.6 fL (81-99); Mean Platelet Vol. 11.1 fl (6.2-12.0); Monocyte# 0.79 X10^3/uL; Monocyte% 13.7 % (0-10); NRBC Flagged by Analyzer 0 % (0-5); Neutrophil # 2.73 X10^3/uL (2.7-7.7); Neutrophil % 47.4 % (47-70); Platelet Count 327 K/mm3 (150-450); RBC Distribution Width CV 13.4 % (11.6-14.6); RBC Distribution Width SD 47.4 fl (35.1-43.9); Red Blood Count 4.27 M/mm3 (4.2-5.4); White Blood Count 5.8 K/mm3 (4.4-11.0)
[2023-02-26 12:49] LABS: Vitamin D,25 Hydroxy 40.7 ng/mL
[2023-02-26 13:00] LABS: ALB/GLOB Ratio 1.1 RATIO (0.9-2.4); AST(SGOT) 39 U/L (15-37); Alanine Aminotransfer ALT/SGPT 38 U/L (13-56); Albumin, Serum 3.8 g/dL (3.2-5.0); Alkaline Phosphatase 65 U/L (45-117); Anion Gap 5 (5-15); BUN 12 mg/dL (7-18); BUN/Creat Ratio 17.7 RATIO (10-20); Calcium,Total 8.7 mg/dL (8.5-10.1); Chloride 102 mmol/L (98-107); Cholesterol 228 mg/dL (200); Creatinine, Serum 0.68 mg/dL (0.55-1.02); EST Glomerular Filtration Rate 89 mL/min (>60); Est Glom Filt Rate - Afr Amer 107 mL/min (>60); Globulin 3.5 g/dL (2.2-4.2); Glucose 86 mg/dL (74-106); High Density Lipoprotein 50 mg/dL; Potassium 4.1 mmol/L (3.5-5.1); Protein, Total 7.3 g/dL (6.4-8.2); Sodium Level 135 mmol/L (136-145); Thyroid Stim Hormone (TSH) 4.52 uIU/mL (0.358-3.74); Triglycerides 81 mg/dL; Very Low Density Lipoprotein 16 mg/dL (5-40)
== END | disposition home or self-care (01) ==
LOC: BIMLAB 08:42
PROVIDERS: PCP Internal Medicine; Referring Provider Internal Medicine; Visit Provider Internal Medicine
DX: E03.9 Hypothyroidism, unspecified (principal); I10 Essential (primary) hypertension; M81.0 Age-related osteoporosis without current pathological fracture
CPT/HCPCS: 36415; 80053; 80061; 82306; 84443; 85025

== ENCOUNTER → 2023-04-02 | Outpatient (CLI) | payer MEDICARE, OTHER, SELFPAY ==
--- NOTE | 2023-04-02 07:30 | BI_ITS ---
MAMMOGRAPHY - BILATERAL SCREENING REASON FOR EXAM: Female, 78 years old. Routine annual screening examination. PERTINENT HISTORY: Non-contributory. TECHNIQUE: Digital bilateral breast tutu (3D mammographic acquisition) in the CC and MLO projections. 2-D mediolateral oblique (MLO) and craniocaudad (CC) views of both breasts were obtained. CAD: Full Field Digital Mammography with Computer Added Detection was performed. COMPARISON: Comparison is made with prior study dated January 02, 2022 and November 14, 2020. FINDINGS: Breast Composition: There are scattered areas of fibroglandular density. There are no dominant masses or suspicious calcifications. No other significant abnormalities are identified. There has been no significant change since the prior study. BI/SCRN MAMM (CAD)W/TUTU BILAT IMPRESSION: Stable bilateral screening mammogram. Yearly follow-up mammogram recommended. (A) ASSESSMENT CATEGORY: BIRADS Category 1: Negative. A letter regarding these results will be sent to the patient by the facility within 30 days. Approximately 10% of breast cancers are not detected by mammography. A normal mammogram should not delay biopsy of a clinically suspicious abnormality. [id number] Electronically Signed: Candelario Tian MD at 8:31 EDT ,
== END | disposition home or self-care (01) ==
LOC: OPBI 07:29
PROVIDERS: PCP Internal Medicine; Referring Provider Internal Medicine; Visit Provider Internal Medicine
DX: Z12.31 Encounter for screening mammogram for malignant neoplasm of breast (principal)
CPT/HCPCS: 77063; 77067

== ENCOUNTER → 2023-08-25 | Outpatient (CLI) | payer MEDICARE, OTHER, SELFPAY ==
[2023-08-25 13:04] LABS: Vitamin D,25 Hydroxy 49.9 ng/mL
[2023-08-25 13:39] LABS: ALB/GLOB Ratio 1.1 RATIO (0.9-2.4); AST(SGOT) 31 U/L (15-37); Alanine Aminotransfer ALT/SGPT 33 U/L (13-56); Albumin, Serum 3.8 g/dL (3.2-5.0); Alkaline Phosphatase 69 U/L (45-117); Anion Gap 8 (5-15); BUN 7 mg/dL (7-18); BUN/Creat Ratio 9.1 RATIO (10-20); Calcium,Total 9.1 mg/dL (8.5-10.1); Chloride 98 mmol/L (98-107); Cholesterol 201 mg/dL (200); Creatinine, Serum 0.77 mg/dL (0.55-1.02); EST Glomerular Filtration Rate 76 mL/min (>60); Est Glom Filt Rate - Afr Amer 93 mL/min (>60); Globulin 3.5 g/dL (2.2-4.2); Glucose 85 mg/dL (74-106); High Density Lipoprotein 46 mg/dL; Potassium 4.2 mmol/L (3.5-5.1); Protein, Total 7.3 g/dL (6.4-8.2); Sodium Level 132 mmol/L (136-145); Thyroid Stim Hormone (TSH) 4.22 uIU/mL (0.358-3.74); Triglycerides 96 mg/dL; Very Low Density Lipoprotein 19 mg/dL (5-40)
[2023-08-26 13:28] LABS: Vitamin B12 1669 pg/mL (211-911)
== END | disposition home or self-care (01) ==
LOC: BIMLAB 08:59
PROVIDERS: PCP Internal Medicine; Referring Provider Internal Medicine; Visit Provider Internal Medicine
DX: E78.5 Hyperlipidemia, unspecified (principal); E83.51 Hypocalcemia; E03.9 Hypothyroidism, unspecified
CPT/HCPCS: 36415; 80053; 80061; 82306; 82607; 84443

== ENCOUNTER 2023-09-29 14:17 | Outpatient (CLI) | payer MEDICARE, OTHER, SELFPAY ==
[2023-09-29 14:31] VITALS: BP 129/54; PULSE 81; RESP 16; TEMP 36.2; O2SAT 98; BMI 23.1
[2023-09-29] MEDS: Zoledronic Acid 5 MG 100 ML 200 MG IV (15:02)
[2023-09-29 15:37] VITALS: BP 139/59; PULSE 68
== END 2023-09-29 14:18 | disposition home or self-care (01) ==
LOC: MEDOUTP 14:18
PROVIDERS: PCP Internal Medicine; Referring Provider Nurse Practitioner; Visit Provider Nurse Practitioner
DX: M81.0 Age-related osteoporosis without current pathological fracture (principal)
CPT/HCPCS: 96365; A4216; J3489

== ENCOUNTER 2023-10-26 07:02 | Emergency (ER) | payer MEDICARE, OTHER, SELFPAY ==
[2023-10-26 07:03] VITALS: BP 173/74; PULSE 85; RESP 18; TEMP 36.4; O2SAT 99; BMI 23.8
--- NOTE | 2023-10-26 07:24 | EDS_ITS ---
HPI History of Present Illness Chief Complaint: Lower Extremity Injury Informant: patient and family Narrative Narrative: 78-year-old female states she went into her garage to get something and she accidentally tripped over the leaf blower that she had just been using, falling to her left kneecap very hard against concrete. She did not injure anything else directly with this fall, but has been having some pain in her left low back since then as well. She does have a history of chronic back problems, but this just started since the fall. She is having a hard time bearing weight on her left lower extremity due to pain in the left knee. She applied ice after she did it for a while. [facility] Medical History Hyponatremia History of influenza Health care maintenance Osteoporosis Breast cancer screening Hypocalcemia Post-menopausal Hypertension Vitamin B12 deficiency Hyperlipidemia Skin cancer Irritable bowel syndrome Arthritis Osteoarthritis Non-smoker High cholesterol Hypothyroidism Mass Home Medications ?Medication ?Instructions ?Recorded ?Last Taken ?Type aspirin 81 mg tablet,delayed 81 mg PO DAILY@0800 blogTV 04/25/14 08/23/21 History release calcium carb, gluc 500 mg 2,000 mg PO DAILY supplement 04/25/14 08/23/21 History calcium-magnesium gluc, oxide 250 mg tablet multivitamin with folic acid 400 1 tab PO DAILY supplement 04/25/14 08/23/21 History mcg tablet vitamin B complex (B 1 tab PO DAILY supplement 01/11/20 08/23/21 History Complex-Vitamin B12 tablet) biotin 1 mg capsule 1 mg PO BID supplement 01/11/22 Unknown History simvastatin 40 mg tablet 40 mg PO DAILY #90 tabs 08/25/23 Unknown Rx levothyroxine 50 mcg tablet 50 mcg PO DAILY 08/26/23 Unknown History lisinopril 5 mg tablet 5 mg PO DAILY #90 tabs 10/14/23 Unknown Rx Allergy/AdvReac Type Severity Reaction Status Date / Time codeine Allergy Vomiting Verified 10/26/23 07:03 Family History Mother Hypertension Other Arthritis High cholesterol Skin cancer Thyroid disorder Surgical History S/P right colectomy (~08/2021) S/P tonsillectomy and adenoidectomy Status post laparoscopic cholecystectomy H/O tubal ligation H/O: hysterectomy Social History Smoking Status: Never smoker alcohol intake: never substance use type: does not use what type of physical activity do you participate in: other ROS ROS ED Constitutional Constitutional ED: Denies chills or fever(s) Musculoskeletal Musculoskeletal: Reports back pain and extremity pain; Denies neck pain Integumentary Denies Abrasions, rash or wounds Neurologic Neurologic: Denies paresthesias or weakness EXAM Physical Exam Const Vital Signs: 10/26/23 07:03 10/26/23 08:01 Temperature 97.6 F L Temperature Source Temporal Pulse Rate 85 Respiratory Rate 18 Blood Pressure 173/74 H 174/81 H Blood Pressure Mean 107 112 Pulse Ox 99 Oxygen Delivery Method Room Air Positive well nourished and well developed General Appearance ED: well developed and NAD Neck full ROM and supple Resp normal respiratory effort Back/Spine normal ROM and normal to inspection Back/Spine Narrative: Mild tenderness along the left pelvic brim. This is lateral to the SI joint. There is no crepitance. There is no midline spinal tenderness. There is no signs of trauma on inspection. Extremity Extremity Narrative: Limited range of motion left knee due to pain. There is a large effusion. There is bruising anteriorly at the patella which is tender, but the lateral and medial aspects of the bones and joints are nontender. Extensor mechanism is intact. Limited flexion due to pain. All ligaments stable with short endpoints and no significant pain or laxity on stressing. Negative anterior and posterior drawer signs. Painless internal and external rotation of the hip joint with no groin pain or tenderness at the greater trochanter. The rest of the left lower extremity is without tenderness and there are no deformities. The other 3 extremities move fully without any limitations or difficulty or pain. Neuro oriented x3, no focal motor deficits and no sensory deficits noted Sensorium / Orientation: alert Psych mental status grossly normal and thought process normal Skin no wounds Rashes: no rashes MDM MDM MDM Narrative Medical decision making narrative: 4 view x-ray series of the left knee on my interpretation negative for acute fracture, probable effusion present. Pelvis 1 view on my interpretation is negative for acute fracture radiology agree with that 1 as well. Patient was reassured. Were going to place an Elieser wrap and see how she does if she needs a knee immobilizer she can have it but I also cautioned her and family about risk of falling with this, but it may be helpful for the first couple days to try to help get this to settle down and for swelling to start improving. Hopefully knee effusion is the main problem here, not able to rule out internal derangement/injury, so if 1 to 2 weeks she is still having significant disability she should follow-up with orthopedics at that point. Discussed with family they are living next-door she is comfortable going home. I offered admission for placement but she states that she will not need that. Offered analgesics she declined. She has crutches at home family is can also get her a walker if she does not already have one and she also has a wheelchair as a backup plan. Also noted that she is hypertensive advised to follow-up with her doctor regarding a recheck. Radiography Diagnostic Testing: Clinical Impression(s) from Imaging Studies Knee X-Ray 10/26/23 07:38 IMPRESSION: No acute osseous injury. Electronically Signed: Donna Sylvester MD at 8:14 EDT , Pelvis X-Ray 10/26/23 07:38 IMPRESSION: Degenerative changes of the hips. Electronically Signed: Donna Sylvester MD at 8:17 EDT , Discharge Plan Triage Chief Complaint: Lower Extremity Injury ED Provider: Luis E Floyd Dx/Rx/DC Orders Clinical Impression: Traumatic effusion of knee joint, Contusion of left knee, Acute lumbar myofascial strain, Episode of hypertension Instructions: ED Knee Effusion Prescriptions: No Action vitamin B complex [B Complex-Vitamin B12] Tablet 1 tab PO DAILY biotin 1 mg capsule 1 mg PO BID simvastatin 40 mg tablet 40 mg PO DAILY Qty: 90 3RF levothyroxine 50 mcg tablet 50 mcg PO DAILY Rx Instructions: take additional 1/2 tab one day a week aspirin 81 MG tablet 81 mg PO DAILY@0800 multivitamin with folic acid 1 TABLET tablet 1 tab PO DAILY calcium carb,gluc-mag gluc,ox 1 EACH tablet 2,000 mg PO DAILY Patient Comments: MG DOSE ?? lisinopril 5 mg tablet 5 mg PO DAILY Qty: 90 2RF Primary Care Provider: Marina Nguyen Referrals: Sanjay Burnett MD [Med Staff - Active Staff] - 10-14 Days if not better Marina Nguyen MD [Primary Care Provider] - Print Language: Zambian Disposition Disposition: Home, Self Care
--- NOTE | 2023-10-26 07:38 | RAD_ITS ---
INDICATION: pain left/fall EXAMINATION/TECHNIQUE: X-RAY - XR Pelvis 1 or 2 Views COMPARISON: No relevant prior comparison study available FINDINGS: PELVIC BONES: No displaced fracture, destructive or sclerotic lesions. Note that overlapping bowel shadows may however obscure fine detail. Sacroiliac joints are unremarkable. No widening of the pubic symphysis. HIPS: There are degenerative changes of the hips. SOFT TISSUES: No soft tissue swelling or gas. There are vascular calcifications. RAD/Pelvis 1 or 2 Views IMPRESSION: Degenerative changes of the hips. Electronically Signed: Donna Sylvester MD at 8:17 EDT ,
--- NOTE | 2023-10-26 07:38 | RAD_ITS ---
INDICATION: fall/trauma EXAMINATION/TECHNIQUE: X-RAY - LEFT XR Knee Complete 4 Views or More 4 VIEWS COMPARISON: No relevant prior comparison study available FINDINGS: SOFT TISSUES: No soft tissue swelling or gas. No radiopaque foreign body. There are vascular calcifications. BONES/JOINTS: No acute fracture or subluxation.. Normal alignment. There is a joint effusion. There is lateral patellar tilt. There is a well-circumscribed radiolucency with sclerotic margins within the proximal fibula which may reflect a cyst. RAD/Knee 4 or More Views IMPRESSION: No acute osseous injury. Electronically Signed: Donna Sylvester MD at 8:14 EDT ,
[2023-10-26 08:01] VITALS: BP 174/81
[2023-10-26 08:55] VITALS: BP 161/73; PULSE 76; RESP 16; TEMP 36.7; O2SAT 98
== END 2023-10-26 08:55 | disposition home or self-care (01) ==
PROVIDERS: Emergency Provider Emergency Medicine; PCP Internal Medicine; Visit Provider Emergency Medicine
DX: M25.462 Effusion, left knee (principal); S39.012A Strain of muscle, fascia and tendon of lower back, initial encounter; S80.02XA Contusion of left knee, initial encounter; I10 Essential (primary) hypertension; W19.XXXA Unspecified fall, initial encounter
CPT/HCPCS: 72170; 73564; 99282

== ENCOUNTER → 2023-11-21 | Outpatient (CLI) | payer MEDICARE, OTHER, SELFPAY ==
[2023-11-21 13:23] LABS: Anion Gap 8 (5-15); BUN 8 mg/dL (7-18); BUN/Creat Ratio 10.2 RATIO (10-20); Chloride 100 mmol/L (98-107); Creatinine, Serum 0.78 mg/dL (0.55-1.02); EST Glomerular Filtration Rate 75 mL/min (>60); Est Glom Filt Rate - Afr Amer 91 mL/min (>60); Glucose 81 mg/dL (74-106); Potassium 4.6 mmol/L (3.5-5.1); Sodium Level 138 mmol/L (136-145); Thyroid Stim Hormone (TSH) 2.43 uIU/mL (0.358-3.74)
== END | disposition home or self-care (01) ==
LOC: BIMLAB 09:34
PROVIDERS: PCP Internal Medicine; Visit Provider Internal Medicine
DX: E03.9 Hypothyroidism, unspecified (principal); E87.1 Hypo-osmolality and hyponatremia
CPT/HCPCS: 36415; 80048; 84443

== ENCOUNTER → 2024-04-06 | Outpatient (CLI) | payer MEDICARE, OTHER, SELFPAY ==
--- NOTE | 2024-04-06 09:21 | BI_ITS ---
MAMMOGRAPHY - BILATERAL SCREENING REASON FOR EXAM: Female, 79 years old. Routine annual screening examination. PERTINENT HISTORY: Non-contributory. TECHNIQUE: Digital bilateral breast tutu (3D mammographic acquisition) in the CC and MLO projections. 2-D mediolateral oblique (MLO) and craniocaudad (CC) views of both breasts were obtained. CAD: Full Field Digital Mammography with Computer Added Detection was performed. COMPARISON: Comparison is made with prior study April 02, 2023 and January 02, 2022. FINDINGS: Breast Composition: There are scattered areas of fibroglandular density. There are no dominant masses or suspicious calcifications. No other significant abnormalities are identified. There has been no significant change since the prior study. BI/SCRN MAMM (CAD)W/TTUU BILAT IMPRESSION: Stable bilateral screening mammogram. Yearly follow-up mammogram recommended. (A) ASSESSMENT CATEGORY: BIRADS Category 1: Negative. A letter regarding these results will be sent to the patient by the facility within 30 days. Approximately 10% of breast cancers are not detected by mammography. A normal mammogram should not delay biopsy of a clinically suspicious abnormality. [id number] Electronically Signed: Candelario Tian MD at 11:48 EDT ,
--- NOTE | 2024-04-06 09:24 | BD_ITS ---
STUDY: DUAL ENERGY X-RAY ABSORPTIOMETRY / DXA REASON FOR EXAM: Female, 79 years old. 733.00OsteoporosisBONE DENSITY REASON FOR EXAM -- Senile osteoprosis TECHNIQUE: Bone Mineral Density (BMD) measurements of lumbar spine and bilateral hips were obtained. COMPARISON: Comparison is made with prior study dated December 28, 2021. FINDINGS: Lumbar Spine (L1-L4): g/cm2 (0.745) / T-score (-2.5) / Z-score (0.2) Findings are suggestive of osteoporosis with a high fracture risk. Left Femur Total: g/cm2 (0.653) / T-score (-2.4) / Z-score (-0.2) Left Femoral Neck: g/cm2 (0.640) / T-score (-1.9) / Z-score (0.5) Right Femur Total: g/cm2 (0.639) / T-score (-2.5) / Z-score (-0.4) Right Femoral Neck: g/cm2 (0.527) / T-score (-2.9) / Z-score (-0.5) The T-Scores on the most recent prior examination were: Lumbar Spine (L1-L4): There has been worsening of bone density since the previous examination. Left Femur Total: which represents an improvement of 0.5%. Right Femur Total: which represents a worsening of 3.7%. BD/Dexa Bone Density Study IMPRESSION: The patient is considered osteoporotic as outlined below according to World Pete Organization (WHO) criteria with a high fracture risk. There has been worsening of bone density since the previous examination. Reference Information: The T-score is the number of standard deviations above or below the standard which is normal for young adults at their peak bone mineral density. The World Health Organization (WHO) interprets the T-scores as follows: Above -1 Normal bone density Between -1 and -2.5 Osteopenia Equal to / or below -2.5 Osteoporosis As a practical clinical guideline, osteopenia may be graded as follows: Mild -1 through -1.5 Moderate -1.6 through -2.0 Severe -2.1 through -2.4 The Z-score is the number of standard deviations above or below age-matched controls. A Z-score of less than -1.5 would be considered abnormal. References: 1. NIH Osteoporosis and Related Bone Diseases www osteo.org 2. International Society for Clinical Densitometry www iscd.org 3. National Osteoporosis Foundation www nof.org Electronically Signed: Candelario Tian MD at 10:22 EDT ,
== END | disposition home or self-care (01) ==
LOC: OPBD 09:21
PROVIDERS: PCP Internal Medicine; Referring Provider Internal Medicine; Visit Provider Internal Medicine
DX: Z12.31 Encounter for screening mammogram for malignant neoplasm of breast (principal); M81.0 Age-related osteoporosis without current pathological fracture
CPT/HCPCS: 77063; 77067; 77080

== ENCOUNTER 2024-08-03 10:36 | Outpatient (CLI) | payer MEDICARE, OTHER, SELFPAY ==
[2024-08-03 11:14] LABS: Absolute Lymphocyte Count 2.73 X10^3/uL (0.83-4.51); Absolute Neutrophil Count 3.1 X10^3/uL (2.0-7.7); Basophil# 0.06 X10^3/uL; Basophil% 0.9 % (0-1); Eosinophil# 0.11 X10^3/uL; Eosinophils% 1.6 % (0-5); Hematocrit 44.6 % (37-47); Hemoglobin 14.5 g/dL (12.0-15.0); Lymphocyte # 2.73 X10^3/ul (0.83-4.51); Lymphocyte % 39.3 % (19-41); Mean Corp Hgb Conc 32.5 g/dL (32-36); Mean Corpuscular Hgb 30.6 pg (27.0-32.0); Mean Corpuscular Volume 94.1 fL (81-99); Mean Platelet Vol. 11.5 fl (6.2-12.0); Monocyte# 0.97 X10^3/uL; NRBC Flagged by Analyzer 0 % (0-5); Neutrophil # 3.05 X10^3/uL (2.7-7.7); Neutrophil % 43.9 % (47-70); Platelet Count 308 K/mm3 (150-450); RBC Distribution Width CV 13.8 % (11.6-14.6); RBC Distribution Width SD 48.3 fl (35.1-43.9); Red Blood Count 4.74 M/mm3 (4.2-5.4); White Blood Count 6.9 K/mm3 (4.4-11.0)
[2024-08-03 11:30] LABS: D-Dimer Quantitative (DVT/PE) 0.35 FEU/ug/m (0.27-0.49)
[2024-08-03 11:40] LABS: Color, Urine Yellow (Yellow); Glucose, Dipstick Normal (Normal); Ketone-Dipstick Negative (Negative); Leukocyte Esterase-Dipstick 100 /ul (Negative); Nitrite-Dipstick Negative (Negative); Occult Blood-Urine Negative /ul (Negative); Protein-Dipstick Negative (Negative); Urine Bilirubin Dipstick Negative (Negative); Urine Clarity Clear (Clear); Urine Urobilinogen Normal (Normal)
[2024-08-03 14:48] LABS: ALB/GLOB Ratio 1.4 RATIO (0.9-2.4); AST(SGOT) 62 U/L (<=31); Alanine Aminotransfer ALT/SGPT 41 U/L (<=34); Albumin, Serum 4.9 g/dL (3.4-4.8); Alkaline Phosphatase 64 U/L (35-104); BUN 11 mg/dL (4-19); BUN/Creat Ratio 15.5 RATIO (10-20); Creatinine, Serum 0.7 mg/dL (0.6-1.0); EST Glomerular Filtration Rate 85 (>60); Globulin 3.6 g/dL (2.2-4.2); Glucose 85 mg/dL (70-99); Protein, Total 8.5 g/dL (5.9-8.4); Total Bilirubin 0.79 mg/dL (0.00-1.30)
[2024-08-03 14:56] LABS: Calcium,Total 9.5 mg/dL (7.6-11.0); Chloride 95 mmol/L (98-107); Sodium Level 137 mmol/L (136-145)
[2024-08-03 14:57] LABS: Anion Gap 16 (5-15); Carbon Dioxide 26.3 mmol/L (21.0-32.0)
[2024-08-03 15:10] LABS: Troponin T High Sensitivity 11 ng/L (<=14)
[2024-08-04 05:07] LABS: CRP, High Sensitivity 0.54 mg/L (0.00-3.00)
== END 2024-08-03 23:59 | disposition home or self-care (01) ==
LOC: LABSPEC 10:39
PROVIDERS: PCP Internal Medicine; Referring Provider Nurse Practitioner Family; Visit Provider Nurse Practitioner Family
DX: I16.0 Hypertensive urgency (principal)
CPT/HCPCS: 80053; 81002; 84443; 84484; 85025; 85379; 86141

== ENCOUNTER 2024-08-05 14:09 | Emergency (ER) | payer MEDICARE, OTHER, SELFPAY ==
[2024-08-05 14:10] VITALS: BP 214/118; PULSE 110; RESP 16; TEMP 36.4; O2SAT 98; BMI 23.6
[2024-08-05 14:52] VITALS: BP 214/91; PULSE 85; RESP 10; O2SAT 97
--- NOTE | 2024-08-05 15:07 | EX.ED.DYSGE1 ---
HPI History of Present Illness Chief Complaint: Hypertension Detail of Chief Complaint: Elevated blood pressure greater than 210 Informant: patient Onset/Context/Timing Onset: Days Context: - (Unknown) Timing: Continuous Quality: Asymptomatic hypertension Location: Cardiovascular Current Severity: Moderate Maximum Severity: Moderate Worsened by: Nothing Relieved by: Nothing Associated Symptoms Associated Symptoms: None Narrative Narrative: patient is an 79-year-old woman with history hypertension for the last 3 years. She was seen by her doctor on Friday. Her losartan dose was increased from 5 mg a day to 10 mg a day. She is on no other antihypertensive meds. She denies headache. She has had neck pain for over a month. She had imaging done on Friday which revealed degenerative changes. She denies double vision, blurred vision loss of vision. She denies trouble with speech or swallowing. She denies chest discomfort. She denies dyspnea or [place] exertion. Denies orthopnea or PND. She denies nausea or vomiting. She denies paresthesia, anesthesia or motor weakness upper lower extremity. She denies problems with coordination or balance. She denies increased or decreased urine output. She states her doctor did drop blood on Friday and believes the results are on the computer. Prior similar symptoms: Yes Recent Illness/Hospitalization: Yes [facility] Medical History Hyponatremia History of influenza Health care maintenance Osteoporosis Breast cancer screening Hypocalcemia Post-menopausal Hypertension Vitamin B12 deficiency Hyperlipidemia Skin cancer Irritable bowel syndrome Arthritis Osteoarthritis Non-smoker High cholesterol Hypothyroidism Mass Home Medications ?Medication ?Instructions ?Recorded ?Last Taken ?Type aspirin 81 mg tablet,delayed 81 mg PO DAILY@0800 Drop Messages 04/25/14 08/23/21 History release calcium 500 mg 2,000 mg PO DAILY supplement 04/25/14 08/23/21 History (carb,gluconate)-magnesium 250 mg (gluc,oxide) tablet multivitamin with folic acid 400 1 tab PO DAILY supplement 04/25/14 08/23/21 History mcg tablet vitamin B complex (B 1 tab PO DAILY supplement 01/11/20 08/23/21 History Complex-Vitamin B12 tablet) biotin 1 mg capsule 1 mg PO BID supplement 01/11/22 Unknown History simvastatin 40 mg tablet 40 mg PO DAILY #90 tabs 08/25/23 Unknown Rx lisinopril 5 mg tablet 5 mg PO DAILY #90 tabs 10/14/23 Unknown Rx levothyroxine 75 mcg tablet 75 mcg PO DAILY #90 tabs 11/25/23 Unknown Rx hydrochlorothiazide 12.5 mg tablet 12.5 mg PO DAILY #30 tabs 08/05/24 Unknown Rx Allergy/AdvReac Type Severity Reaction Status Date / Time codeine Allergy Vomiting Verified 08/05/24 14:12 Family History Mother Hypertension Other Arthritis High cholesterol Skin cancer Thyroid disorder Surgical History S/P right colectomy (~08/2021) S/P tonsillectomy and adenoidectomy Status post laparoscopic cholecystectomy H/O tubal ligation H/O: hysterectomy Social History household members: none Smoking Status: Never smoker alcohol intake: never substance use type: does not use what type of physical activity do you participate in: other ROS ROS ED Constitutional Constitutional ED: Denies chills, fever(s), subjective, sweats or weight loss Eyes Eyes: Denies blurry vision, change in vision or diplopia ENT ENT ED: Denies ear pain, rhinorrhea or sore throat Cardiovascular Cardiovascular: Denies chest pain, orthopnea, palpitations or paroxysmal nocturnal dyspnea Respiratory/Chest Respiratory/Chest: Denies cough, dyspnea, dyspnea on exertion, orthopnea or paroxysmal nocturnal dyspnea Gastrointestinal Gastrointestinal: Denies abdominal pain, nausea or vomiting Genitourinary Genitourinary ED: Denies dysuria, hematuria or urinary frequency Musculoskeletal Musculoskeletal: Denies arthralgias or myalgias Integumentary Denies rash Neurologic Neurologic: Denies headache(s) or paresthesias Endocrine Endocrinology: Denies cold intolerance or heat intolerance Hematologic/Lymphatic Hematologic/Lymphatic: Reports systems reviewed and no addt'l complaints, except as documented EXAM Physical Exam Const Vital Signs: 08/05/24 14:10 08/05/24 14:52 08/05/24 14:54 Temperature 97.5 F L Temperature Source Temporal Pulse Rate 110 H 85 Respiratory Rate 16 10 L Respiratory Effort Normal Non-Labored Respiratory Pattern Normal Blood Pressure 214/118 H 214/91 H Blood Pressure Mean 150 132 Pulse Ox 98 97 Oxygen Delivery Method Room Air Room Air 08/05/24 16:31 Temperature Temperature Source Pulse Rate 77 Respiratory Rate 14 Respiratory Effort Respiratory Pattern Blood Pressure 186/76 H Blood Pressure Mean 112 Pulse Ox 96 Oxygen Delivery Method Positive well nourished and well developed Constitutional Narrative: Blood pressure is elevated. She appears no distress. General Appearance ED: well developed; Negative for pallor HEENT Reports moist mucous membranes HEENT Narrative: Head is atraumatic no cephalic. Ears normal. Nares patent. Posterior pharynx normal. Uvula is midline. No deviation tongue protrusion. Eyes PERRL and EOMs intact bilaterally General Eye ED: Negative for pale conjunctiva or scleral icterus Neck no lymphadenopathy, supple and no JVD Chest Wall inspection of chest normal and palpation of chest normal Resp normal respiratory effort and clear to auscultation bilaterally Cardio regular rate, regular rhythm, S1 normal heart sound, S2 normal heart sound and no murmurs GI normal to inspection, nondistended, normoactive bowel sounds, non-tender, non-distended and no masses; Negative for hepatosplenomegaly Back/Spine no CVA tenderness Extremity normal to inspection General Extremety ED: Negative for edema or tenderness General Extremity: Negative for edema Neuro oriented x3, CN's II-XII intact bilaterally and no sensory deficits noted Neuro Narrative: There is no clonus. There is no Babinski. There is no dysmetria. Sensorium / Orientation: alert Motor Exam: strength 5/5 throughout Psych mental status grossly normal Skin no rashes or lesions noted, no wounds and skin turgor normal General Skin Exam: elasticity normal; Negative for jaundice or pallor MDM MDM MDM Narrative Medical decision making narrative: Patient with asymptomatic hypertension. Patient had CBC, BMP and UA on August 03. BUN and creatinine were normal. Urine revealed no proteinuria or hematuria. Will observe. If her blood pressure does not come down after an hour will treat. History & Record Review Additional record(s) reviewed:: Prior outpatient record (Orthopedic visit for left knee issue. PCP August 2023 for influenza. Other visits for hypertension management.) and Prior ED visit (October 2023 for lumbar myofascial strain) Treatment and Re-Evaluation :: Most recent blood pressure is 186/76. There is no need for emergent treatment. Will add hydrochlorothiazide 12.5 mg to her present regimen. She was instructed to start with first dose in the morning. Discharge Plan Triage Chief Complaint: Hypertension ED Provider: Garfield Santana Dx/Rx/DC Orders Clinical Impression: Asymptomatic hypertension, Hyperlipidemia, Hypothyroidism Instructions: ED Hypertension, Established Prescriptions: New hydrochlorothiazide 12.5 mg tablet 12.5 mg PO DAILY Qty: 30 0RF No Action vitamin B complex [B Complex-Vitamin B12] Tablet 1 tab PO DAILY biotin 1 mg capsule 1 mg PO BID simvastatin 40 mg tablet 40 mg PO DAILY Qty: 90 3RF aspirin 81 MG tablet 81 mg PO DAILY@0800 multivitamin with folic acid 1 TABLET tablet 1 tab PO DAILY calcium carb,gluc-mag gluc,ox 1 EACH tablet 2,000 mg PO DAILY Patient Comments: MG DOSE ?? lisinopril 5 mg tablet 5 mg PO DAILY Qty: 90 2RF levothyroxine 75 mcg tablet 75 mcg PO DAILY Qty: 90 3RF Primary Care Provider: Charla Ortiz Referrals: Charla Ortiz DO [Primary Care Provider] - Keep [place] appointment Activity Restrictions/Additional Instructions: Start the hydrochlorothiazide in the morning. Do not recommend taking this evening since the medicine initially works as a diuretic for the first 1 to 2 weeks. Print Language: Jamaican Disposition Disposition: Home, Self Care
[2024-08-05 16:31] VITALS: BP 186/76; PULSE 77; RESP 14; O2SAT 96
[2024-08-05 17:50] VITALS: BP 181/75; PULSE 78; RESP 16; TEMP 35.9; O2SAT 97
== END 2024-08-05 17:50 | disposition home or self-care (01) ==
PROVIDERS: Emergency Provider Emergency Medicine; PCP Internal Medicine; Visit Provider Emergency Medicine
DX: I10 Essential (primary) hypertension (principal); E03.9 Hypothyroidism, unspecified; E78.00 Pure hypercholesterolemia, unspecified; Z79.899 Other long term (current) drug therapy; Z79.890 Hormone replacement therapy; Z90.49 Acquired absence of other specified parts of digestive tract
CPT/HCPCS: 99284; A4216

== ENCOUNTER 2024-09-30 07:30 | Outpatient (RCR) | payer MEDICARE, OTHER, SELFPAY ==
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
--- NOTE | 2025-02-14 14:20 | HP.PT.NRP ---
Patient Information Patient Information: RA LEOS was seen in my office for initial evaluation on 09/14/24. The following Plan of Care was established for this patient: POC Established Initial Frequency: 2x /Week Initial Duration: 2 Months Anticipated Interventions Patient/Client Instruction: Educate patient on: Condition and Plan of Care For the Purpose of:: To decrease pain, To increase ROM, To improve nutrient delivery to tissue, To improve muscle performance and motor function, To improve ability to perform ADL's, To increase tolerance to activity/condition/position, To improve performance and independence with ADL's, To improve health of tissue, To decrease soft tissue restriction and To increase flexibility/ROM Therapeutic Exercise to Include: Strength training, Endurance training, Postural training, Flexibilty training, Neuromotor development, Passive ROM, Active ROM and Scapular Strength/Stabilization For the Purpose of:: To decrease pain, To increase ROM, To improve nutrient delivery to tissue, To improve muscle performance and motor function, To improve ability to perform ADL's, To increase tolerance to activity/condition/position, To improve health of tissue, To decrease soft tissue restriction, To increase flexibility/ROM and To improve endurance Manual Therapy Techniques to Include: Passive ROM and Soft tissue mobilization For the Purpose of:: To decrease pain, To increase ROM, To improve nutrient delivery to tissue, To improve muscle performance and motor function, To improve ability to perform ADL's, To improve health of tissue, To decrease soft tissue restriction and To increase flexibility/ROM Thermo therapy (hot pack): Yes For the Purpose of:: To decrease pain, To increase ROM, To improve nutrient delivery to tissue and To improve muscle performance and motor function Last Seen Last Seen: This patient was last seen in our office 09/30/24. Pertinent comments regarding their Physical therapy will appear below: [facility] At this point I will be discontinuing this patient from physical therapy. I would be happy to see this patient again in the future if found appropriate by the physician. Thank you! Melissa Garcia, BETSY Balance/Gait/Functional tests Balance/Special Test Scores Oswestry Neck Score: 17
== END 2024-09-30 19:00 | disposition home or self-care (01) ==
LOC: PT 07:30
PROVIDERS: PCP Internal Medicine; Referring Provider Orthopaedic Surgery Orthopaedic Surgery of the Spine; Visit Provider Orthopaedic Surgery Orthopaedic Surgery of the Spine
DX: M54.2 Cervicalgia (principal); M47.812 Spondylosis without myelopathy or radiculopathy, cervical region
CPT/HCPCS: 97110; 97140; 97161

== ENCOUNTER → 2025-04-07 | Outpatient (CLI) | payer MEDICARE, OTHER, SELFPAY ==
--- NOTE | 2025-04-07 07:15 | BI_ITS ---
EXAM: BI/SCRN MAMM (CAD)W/TUTU BILAT
== END | disposition home or self-care (01) ==
LOC: OPBI 07:11
PROVIDERS: PCP Internal Medicine; Referring Provider Internal Medicine; Visit Provider Internal Medicine
DX: Z12.31 Encounter for screening mammogram for malignant neoplasm of breast (principal)
CPT/HCPCS: 77063; 77067